=== PATIENT | male | born 1965 | race Two or more races ===

== ENCOUNTER → 2021-02-01 12:48 | Outpatient (REF) | payer OTHER, SELFPAY ==
--- NOTE | 2021-02-01 12:52 | CA_ITS ---
Transthoracic Echocardiogram Patient (Last, First, Middle): Guy Granado, Gender: Male Date of : 1965 Age: 55 Procedure Date: 02/01/2021 Procedure Type: Transthoracic Echocardiogram Location: OP Height: 167.64 cm Weight: 110.22 kg BSA: 2.17 m2 Heart Rate: bpm BP: 134 / 80 mmHg Surgical Sales Representative: Referring MD: Chris Mcginnis MD Symptoms: Z98.890 - Other specified postprocedural states, MVR Study Quality: Good ECG Rhythm: Sinus Conclusions: - Normal left ventricular size and systolic function. - There is mildly increased left ventricular wall thickness. - Normal right ventricular cavity size and systolic function. - The left atrium is moderately dilated. - There is mild dilatation of the sinuses of Valsalva and mild dilatation of the ascending aorta. Findings Procedure Information Contrast agent, definity, is being given per protocol without apparent complications. Left Ventricle Normal left ventricular size and systolic function. There is mildly increased left ventricular wall thickness. The visually estimated ejection fraction is between 55-60%. There is no evidence of regional wall motion abnormalities. Diastolic function is indeterminate on the basis of available data. Right Ventricle Normal right ventricular cavity size and systolic function. Atria The left atrium is moderately dilated. Aortic Valve The aortic valve structure and function is likely normal. There is no aortic valve stenosis. There is no aortic valve regurgitation. Mitral Valve There is no mitral valve regurgitation. There is no mitral valve stenosis. s/p mitral valve repair. Pulmonic Valve The pulmonic valve is likely normal. Tricuspid Valve Normal tricuspid valve structure. There is trace tricuspid valve regurgitation. Normal right atrial pressure. There is no evidence of pulmonary hypertension. Great Vessels The pulmonary artery was not well visualized. There is mild dilatation of the sinuses of Valsalva and mild dilatation of the ascending aorta. Venous The inferior vena cava is normal in size and collapses greater than 50% with inspiration. Pericardium/Pleural There is no evidence of pericardial effusion. Prior Study Comparison Changes noted compared to prior study dated: 09/01/2018. LA moderately dilated. Mild dilation of ascending aorta. Measurements 2D Linear Measurements IVSd: 1.27 0.6-0.9/0.6-1.0 cm LVIDd: 4.69 3.9-5.3/4.2-5.9 cm LVIDd Index: 2.16 2.4-3.2/2.2-3.1 cm/m2 LVIDs: 2.95 2.0-3.6 cm LVPWd: 1.22 0.7-1.1 cm Ao Root: 4.50 2.1-3.5 cm LA Diam: 4.90 2.7-3.8/3.0-4.0 cm LAIDs Index: 2.26 1.5-2.3 cm/m2 LV Mass: 277.66 67-162/88-224 g LV Mass Index: 127.96 43-95/49-115 g/m2 LVOT Diam: 2.50 3.0+(-)1.3 cm Mitral Valve MV VTI: 0.63 MV Pk Ramin: 1.45 MV Mn Ramin: 0.83 MV Pk Grad: 8.00 MV Mn Grad: 4.00 MV Pk E: 1.13 MV PK A: 1.26 MV Decel Time: 335.00 E/A: 0.90 E'Lateral: 5.98 E'Medial: 5.55 E/E' Med: 20.40 E/E' Lat: 18.90 PHT: 98.00 MVA PHT: 2.24 MVA Continuity: 1.67 Decel [place]: 3.38 Aortic Valve AoV Pk Ramin: 1.25 AoV Mn Ramin: 0.72 AoV VTI: 0.30 AoV Pk Grad: 6.00 Aov Mn Grad: 3.00 LEILA Cont.VTI: 3.57 LVOT LVOT Pk Ramin: 0.91 LVOT Mn Ramin: 0.54 LVOT VTI: 0.22 LVOT Pk Grad: 3.00 LVOT Mn Grad: 1.00 LVOT Diam: 2.50 LVOT Area: 4.91 Diastolic Function MV Pk E: 1.13 MV Pk A: 1.26 E/A: 0.90 E'Medial: 5.55 E/E' Med: 20.40 E' Laterial: 5.98 E/E' Lat: 18.90 Right Ventricle TAPSE (mm): 19.00 TVS' Ramin: 9.00 Tricuspid Valve TR Pk Ramin: 2.25 TR Pk Grad: 20.00 RA Press: 3.00 RVSP: 23.00 Great Vessels Aorta Ao Root-2D: 4.50 2.0-3.7 cm Sinus of Valsalva: 4.50 2.0-3.5 cm Ao Asc: 3.60 2.1-3.4 cm Pulmonary Valve PV Pk Ramin: 0.80 Peak PV Grad: 3.00 Updated in Other Vendor System with Status of Final Orion Del Angel MD electronically signed on 02/03/2021 4:27:26 PM with status of Final
== END ==
LOC: HO.CARD 12:48
PROVIDERS: Visit Provider Internal Medicine Cardiovascular Disease
DX: Z98.890 Other specified postprocedural states (principal)
CPT/HCPCS: 93306

== ENCOUNTER → 2021-07-08 12:42 | Outpatient (BNVA) | payer OTHER, SELFPAY | PROVIDERS: PCP General Practice; Referring Provider General Practice; Visit Provider Internal Medicine Cardiovascular Disease | DX: I10 Essential (primary) hypertension (principal); Z98.890 Other specified postprocedural states | CPT/HCPCS: 93005; 99212 ==

== ENCOUNTER → 2022-06-06 13:06 | Outpatient (REF) | payer OTHER, SELFPAY ==
--- NOTE | 2022-06-06 14:46 | CA_ITS ---
Transthoracic Echocardiogram Patient (Last, First, Middle): Guy Granado, Gender: Male Date of : 1965 Age: 57 Procedure Date: 06/06/2022 Procedure Type: Transthoracic Echocardiogram Location: OP Height: 167.64 cm Weight: 112.49 kg BSA: 2.19 m2 Heart Rate: 67 bpm BP: 135 / 80 mmHg Cnc Wood Lathe Operator: GENO Referring MD: Chris Mcginnis MD Asphalt Patcher: Chris Mcginnis MD Symptoms: Z98.890 - Other specified postprocedural states Study Quality: Poor/Contrast ECG Rhythm: Sinus Conclusions: - 1. Technically limited study despite use of contrast agent 2. Normal LV systolic function with pseudonormal filling pattern 3. Limited visualization of cardiac valve including of the reported prior mitral valve repair with normal cardiac valvular Doppler 4. Normal calculated RV systolic pressure Findings Procedure Information Contrast agent, definity, is being given per protocol without apparent complications. Left Ventricle The left ventricle was not well visualized. Normal left ventricular cavity size. The visually estimated ejection fraction is between 65-70%. Regional wall motion abnormalities can not be excluded due to suboptimal endocardial definition. Spectral Doppler is indicative of a pseudonormal filling pattern. Right Ventricle The right ventricle was not well visualized. Atria The left atrium was not well visualized. Interatrial shunt cannot be excluded. The right atrium was not well visualized. Aortic Valve The aortic valve was not well visualized. There is no aortic valve stenosis. There is no aortic valve regurgitation. Mitral Valve The mitral valve was not well visualized. There is no mitral valve regurgitation. Pulmonic Valve The pulmonic valve was not well visualized. Tricuspid Valve The tricuspid valve was not well visualized. There is trace tricuspid valve regurgitation. The right ventricular systolic pressure is 17 mmHg. Great Vessels The aorta was not well visualized. The pulmonary artery was not well visualized. Venous The inferior vena cava is normal in size and collapses greater than 50% with inspiration. Pericardium/Pleural The pericardium was not well visualized. Prior Study Comparison No significant change compared to prior study dated: 02/01/2021. Measurements 2D Linear Measurements IVSd: 1.59 0.6-0.9/0.6-1.0 cm LVIDd: 4.65 3.9-5.3/4.2-5.9 cm LVIDd Index: 2.12 2.4-3.2/2.2-3.1 cm/m2 LVIDs: 3.22 2.0-3.6 cm LVPWd: 1.62 0.7-1.1 cm LA Diam: 6.00 2.7-3.8/3.0-4.0 cm LAIDs Index: 2.74 1.5-2.3 cm/m2 LV Mass: 400.44 67-162/88-224 g LV Mass Index: 182.85 43-95/49-115 g/m2 LVOT Diam: 2.40 3.0+(-)1.3 cm 2D Systolic Function EF 4C: 68.40 >55% EF 2C: 74.70 >55% EF BiP: 71.40 >55% Mitral Valve MV VTI: 0.53 MV Pk Ramin: 1.59 MV Mn Ramin: 1.04 MV Pk Grad: 10.00 MV Mn Grad: 5.00 MV Pk E: 1.52 MV PK A: 1.31 MV Decel Time: 312.00 E/A: 1.20 E'Lateral: 4.23 E'Medial: 4.60 E/E' Med: 33.00 E/E' Lat: 35.90 PHT: 91.00 MVA PHT: 2.42 MVA Continuity: 2.36 Decel [place]: 4.87 Aortic Valve AoV Pk Ramin: 1.56 AoV Mn Ramin: 1.07 AoV VTI: 0.33 AoV Pk Grad: 10.00 Aov Mn Grad: 5.00 LEILA Cont.VTI: 3.82 LVOT LVOT Pk Ramin: 1.37 LVOT Mn Ramin: 0.89 LVOT VTI: 0.28 LVOT Pk Grad: 8.00 LVOT Mn Grad: 4.00 LVOT Diam: 2.40 LVOT Area: 4.52 Diastolic Function MV Pk E: 1.52 MV Pk A: 1.31 E/A: 1.20 E'Medial: 4.60 E/E' Med: 33.00 E' Laterial: 4.23 E/E' Lat: 35.90 Right Ventricle TAPSE (mm): 19.70 TVS' Ramin: 9.58 Tricuspid Valve TR Pk Ramin: 1.86 TR Pk Grad: 14.00 RA Press: 3.00 RVSP: 17.00 Great Vessels Aorta Sinus of Valsalva: 3.90 2.0-3.5 cm Ao Asc: 3.70 2.1-3.4 cm Pulmonary Valve PV Pk Ramin: 0.69 Peak PV Grad: 2.00 Updated in Other Vendor System with Status of Final Chris Mcginnis MD electronically signed on 06/06/2022 7:02:45 PM with status of Final
== END ==
LOC: HO.CARD 13:06
PROVIDERS: PCP Internal Medicine; Visit Provider Internal Medicine Cardiovascular Disease
DX: Z98.890 Other specified postprocedural states (principal)
CPT/HCPCS: 93306; Q9957

== ENCOUNTER → 2022-07-10 13:03 | Outpatient (BNVA) | payer OTHER, SELFPAY | PROVIDERS: PCP General Practice; Referring Provider General Practice; Visit Provider Internal Medicine Cardiovascular Disease | DX: I10 Essential (primary) hypertension (principal); Z98.890 Other specified postprocedural states | CPT/HCPCS: 93005; 99212 ==

== ENCOUNTER 2022-09-14 13:17 | Emergency (ER) | payer OTHER, SELFPAY ==
--- NOTE | ~2022-09-14 | XR_ITS ---
EXAMINATION: XR CHEST CLINICAL INFORMATION: Cough and chest pain. COMPARISON: 05/03/2019 chest radiographs. TECHNIQUE: Frontal view of the chest was obtained. FINDINGS: No significant abnormality is noted involving the heart, lungs, mediastinum, bony thorax or soft tissues. Multiple levels sternotomy wires are intact. XR/XR chest 1V IMPRESSION: No acute cardiopulmonary process.
--- NOTE | 2022-09-14 13:26 | ECG_ITS ---
Test Reason : CHEST PAIN Blood Pressure : / mmHG Vent. Rate : 074 BPM Atrial Rate : 074 BPM P-R Int : 166 ms QRS Dur : 080 ms QT Int : 394 ms P-R-T Axes : 043 007 058 degrees QTc Int : 437 ms Normal sinus rhythm Inferior infarct (cited on or before 07-DEC-2016) Abnormal ECG When compared with ECG of 29-JAN-2018 23:03, No significant change was found Referred By: Alba Marcos Electronically Signed By:Orion Del Angel
[2022-09-14 13:32] VITALS: BP 143/78; PULSE 70; RESP 16; TEMP 36.7; O2SAT 96; BMI 40.3
[2022-09-14 13:36] VITALS: BP 143/78; PULSE 71; RESP 18; TEMP 36.7; O2SAT 97; BMI 40.9
--- NOTE | 2022-09-14 13:37 | ED_ITS ---
HPI - General Adult General Chief complaint: Dyspnea Stated complaint: cant sleep x3 days. chest tightness Time Seen by Provider: 09/14/22 13:25 Source: patient and bump grader operator Mode of arrival: ambulatory Limitations: no limitations History of Present Illness HPI narrative: 57-year-old male speaking came in for evaluation of 4 days of coughing, congestion, runny nose, chills with no fever, patient also been having chest pain for the past 2 days with the coughing, pain is not exertional localized to the left side of the chest with no radiation. Patient stated that his time because he can sleep a night from coughing too much. No sick contacts, no recent travel. Related Data Home Medications Medication Instructions Recorded Confirmed zolpidem 10 mg tablet 10 mg PO BEDTIME PRN 07/08/21 07/10/22 Previous Rx's Medication Instructions Recorded aspirin 81 mg tablet,delayed 81 mg PO DAILY #90 tabs 12/12/21 release lisinopril 10 mg tablet 10 mg PO DAILY #90 tabs 06/09/22 metoprolol succinate 100 mg 100 mg PO DAILY #90 tabs 06/26/22 tablet,extended release 24 hr simvastatin 20 mg tablet 20 mg PO BEDTIME 90 days #90 tabs 07/07/22 amoxicillin 500 mg tablet 2,000 mg PO ONCE PRN dental 07/10/22 procedures #4 tabs albuterol sulfate 90 mcg/actuation 1 inh inhalation QID PRN shortness 09/14/22 aerosol inhaler of breath or wheezing #6.7 grams azithromycin 250 mg tablet See Rx Instructions PO .COMPLEX #6 09/14/22 (Zithromax Z-Larry) tabs prednisone 20 mg tablet 20 mg PO BID #10 tabs 09/14/22 Allergies Allergy/AdvReac Type Severity Reaction Status Date / Time morphine [MORPHINE] Allergy Unknown HEADACHE Unverified 03/15/20 17:23 Review of Systems Review of Systems: All other systems are reviewed and are negative Constitutional: Reports as per HPI and Reports no additional constitutional complaints Eyes: Reports as per HPI and Reports no additional eye complaints Reports system reviewed and no additional complaints, except as documented Cardiovascular: Reports as per HPI and Reports no additional cardiovascular complaints Respiratory: Reports as per HPI and Reports no additional respiratory complaints Gastrointestinal: Reports as per HPI and Reports no additional gastrointestinal complaints Genitourinary: Reports no additional female genitourinary complaints Musculoskeletal: Reports no additional musculoskeletal complaints Skin/Breast: Reports system reviewed and no additional complaints, except as docu Psychiatric: Reports no additional psychiatric complaints Endocrine: Reports no additional endocrine complaints Hematologic/Lymphatic: Reports no additional hematologic/lymphatic complaints Allergic/Immunologic: Reports no additional allergic/immunologic complaints Reports system reviewed and no additional complaints, except as documented and Reports Abnormal speech present [facility] Past Medical History Medical History HTN (hypertension) Mitral regurgitation Surgical History Status post mitral valve repair Social History Social History Advance Directives: No Advance Directives Information Provided: Yes Physical Exam ED Vital Signs: Vital Signs - 24 hr 09/14/22 13:32 09/14/22 13:36 Temperature 98.1 F 98.1 F Pulse Rate 70 71 Respiratory Rate 16 18 Blood Pressure 143/78 H 143/78 H Pulse Oximetry 96 97 Oxygen Delivery Method Room Air Room Air BMI result Body Mass Index 40.9 Vital signs have been reviewed as appeared to be correct. Blood pressure normal. Heart rate normal. Respiration rate normal. Temperature normal. Oxy gen saturation normal. Appearance: Alert. Oriented X3. No acute distress. Head: Normal external exam. Normocephalic. Atraumatic. No Sanders signs noted. No raccoon eyes noted Eyes: PERRLA. EOMI. Conjunctiva and sclera normal. Eyelids normal. ENT: TM's Normal. Pharynx normal. Uvula midline. Moist mucous membranes. No trismus noted. No drooling noted. No muffled voice noted. Neck: Normal inspection. Neck supple. FROM. No adenopathy. Thyroid Normal. No meningeal signs. No neck mass noted. CVS: Normal heart rate and rhythm. Heart sound normal. No murmurs noted. Pulses normal throughout. Respiratory: No respiratory distress. Painless inspiration. Breath sounds no rmal. No wheezes/rales/rhonchi noted. Chest nontender. No accessory muscle usage noted or decreased air movement noted. Abdomen: Soft and nontender. Bowel sounds normal in all 4 quadrants. No disten tion noted. No organomegaly noted. No visible injury noted. Back: No CVA tenderness. Full range of motion noted. Skin: Skin warm and dry. Normal skin color. Normal skin turgor. No rashes/lesions/lacerations noted. Extremities: No lower extremity edema. Extremities exhibit normal range of mo tion. Extremities nontender. Neuro: Oriented X 3. Cranial nerve exam: II-XII are grossly intact No motor deficit. No sensory deficit. Reflexes normal. Medications Administered Discontinued Medications Generic Name Dose Route Start Last Admin Trade Name Freq PRN Reason Stop Dose Admin Acetaminophen 650 mg 09/14/22 14:11 09/14/22 14:25 Acetaminophen 325 Mg Tablet PO 09/14/22 14:12 650 mg ONCE ONE Administration Ondansetron HCl 4 mg 09/14/22 14:11 09/14/22 14:25 Ondansetron Odt 4 Mg Tab.Rapdis TRANSLINGU 09/14/22 14:12 4 mg ONCE ONE Administration Medical Decision Making Differential Diagnosis Differential Diagnoses: The differential diagnosis associated with the presentation includes (Upper respiratory viral infection, pneumonia, ACS.) Lab Data MDM Lab Attestation statement: I reviewed the patient's lab results. 09/14/22 13:50 09/14/22 13:50 Labs: Lab Results 09/14/22 09/14/22 09/14/22 Range/Units 13:41 13:50 13:50 WBC 5.7 (4.8-10.8) X10*3/uL RBC 4.80 (4.60-5.80) X10*6/uL Hgb 14.0 (14.0-18.0) g/dl Hct 42.3 (42.0-52.0) % MCV 88.1 (80.0-98.0) fL MCH 29.2 (27.0-33.0) pg MCHC 33.1 (31.0-36.0) g/dl RDW 13.8 (11.0-16.0) % Plt Count 155 L (160-400) X10*3/uL MPV 10.6 (9.4-12.4) fL Immature Gran % (Auto) 0.4 (0.0-0.4) % Neut % (Auto) 56.7 (45-73) % Lymph % (Auto) 28.9 (20-40) % [place] % (Auto) 11.3 H (2-11) % Eos % (Auto) 2.5 (0-4) % Baso % (Auto) 0.2 (0-2) % Lymph # (Auto) 1.6 (1.2-4.9) X10*3/uL [place] # (Auto) 0.6 (0.1-1.2) X10*3/uL Eos # (Auto) 0.1 (0.0-0.4) X10*3/uL Baso # (Auto) 0.0 (0.0-0.2) X10*3/uL Abs Immat Gran (auto) 0.02 (0.00-0.03) X10*3/uL Absolute Neuts (auto) 3.2 (2.0-8.3) x10*3/uL Absolute Nucleated RBC 0.000 (0.0-0.012) X10*3/uL Nucleated RBC % (auto) 0.0 (0.0-0.2) /100WBC Sodium 140 (135-145) mmol/L Potassium 4.3 (3.3-5.1) mmol/L Chloride 107 (96-108) mmol/L Carbon Dioxide 25 (22-29) mmol/L Anion Gap 12 (12-20) BUN 14 (9-16) mg/dL Creatinine 0.90 (0.5-1.4) mg/dL Estim Creat Clear Calc 110.5 Estimated GFR > 60 Random Glucose 106 (60-115) mg/dL Calcium 8.9 (8.4-10.2) mg/dL Total Bilirubin 0.4 (0.0-1.0) mg/dL Direct Bilirubin < 0.2 (0.0-0.5) mg/dL AST 51 H (5-37) U/L ALT 53 H (0-40) U/L Alkaline Phosphatase 103 (39-117) U/L Troponin I High Sens (<3.5-35.0) ng/L B-Natriuretic Peptide (<100) pg/mL Total Protein 6.5 (6.5-8.0) g/dL Albumin 3.8 (3.5-5.0) g/dL Lipase 10 (8-78) U/L Urine Color Urine Appearance Urine pH (5.0-9.0) Ur Specific [place] (1.005-1.025) Urine Protein (Neg-Trace) mg/dL Urine Glucose (UA) (Negative) mg/dL Urine Ketones (Negative) mg/dL Urine Blood (Negative) Urine Nitrite (Negative) Ur Leukocyte Esterase (Negative) Urine RBC (0-2) /HPF Urine WBC (0-5) /HPF Ur Squamous Epith Cells (0-2) /HPF Urine Bacteria (None Seen) Hyaline Casts (0-2) /LPF Influenza Type A (PCR) NEGATIVE (Negative) Influenza Type B (PCR) NEGATIVE (Negative) RSV RNA Qual (PCR) NEGATIVE (Negative) SARS-CoV-2 RNA (RT-PCR) NEGATIVE (Negative) 09/14/22 09/14/22 09/14/22 Range/Units 13:50 13:50 14:11 WBC (4.8-10.8) X10*3/uL RBC (4.60-5.80) X10*6/uL Hgb (14.0-18.0) g/dl Hct (42.0-52.0) % MCV (80.0-98.0) fL MCH (27.0-33.0) pg MCHC (31.0-36.0) g/dl RDW (11.0-16.0) % Plt Count (160-400) X10*3/uL MPV (9.4-12.4) fL Immature Gran % (Auto) (0.0-0.4) % Neut % (Auto) (45-73) % Lymph % (Auto) (20-40) % [place] % (Auto) (2-11) % Eos % (Auto) (0-4) % Baso % (Auto) (0-2) % Lymph # (Auto) (1.2-4.9) X10*3/uL [place] # (Auto) (0.1-1.2) X10*3/uL Eos # (Auto) (0.0-0.4) X10*3/uL Baso # (Auto) (0.0-0.2) X10*3/uL Abs Immat Gran (auto) (0.00-0.03) X10*3/uL Absolute Neuts (auto) (2.0-8.3) x10*3/uL Absolute Nucleated RBC (0.0-0.012) X10*3/uL Nucleated RBC % (auto) (0.0-0.2) /100WBC Sodium (135-145) mmol/L Potassium (3.3-5.1) mmol/L Chloride (96-108) mmol/L Carbon Dioxide (22-29) mmol/L Anion Gap (12-20) BUN (9-16) mg/dL Creatinine (0.5-1.4) mg/dL Estim Creat Clear Calc Estimated GFR Random Glucose (60-115) mg/dL Calcium (8.4-10.2) mg/dL Total Bilirubin (0.0-1.0) mg/dL Direct Bilirubin (0.0-0.5) mg/dL AST (5-37) U/L ALT (0-40) U/L Alkaline Phosphatase (39-117) U/L Troponin I High Sens 5.8 (<3.5-35.0) ng/L B-Natriuretic Peptide 17 (<100) pg/mL Total Protein (6.5-8.0) g/dL Albumin (3.5-5.0) g/dL Lipase (8-78) U/L Urine Color Yellow Urine Appearance Clear Urine pH 5.5 (5.0-9.0) Ur Specific [place] 1.025 (1.005-1.025) Urine Protein Trace (Neg-Trace) mg/dL Urine Glucose (UA) Negative (Negative) mg/dL Urine Ketones Trace (Negative) mg/dL Urine Blood Small (1+) H (Negative) Urine Nitrite Negative (Negative) Ur Leukocyte Esterase Negative (Negative) Urine RBC 6-10 H (0-2) /HPF Urine WBC 0-5 (0-5) /HPF Ur Squamous Epith Cells 0-2 (0-2) /HPF Urine Bacteria None Seen (None Seen) Hyaline Casts 0-2 (0-2) /LPF Influenza Type A (PCR) (Negative) Influenza Type B (PCR) (Negative) RSV RNA Qual (PCR) (Negative) SARS-CoV-2 RNA (RT-PCR) (Negative) Independent Interpretation I performed an independent interpretation of an: EKG (Normal sinus rhythm at 74 beats per minutes with normal intervals, no ST-T changes.) and Plain X-Ray (No acute intrathoracic pathology) Radiology Impression Discussion of test interpretation with radiology: I have reviewed the radiologist's reading. Discharge Plan Discharge Clinical Impression: Upper respiratory infection, Acute bronchitis Clinical Impression: (Ruled Out): Otitis media Patient Disposition: Home, Self-Care Instructions: Acute Bronchitis (ED) Prescriptions: New azithromycin [Zithromax Z-Larry] 250 mg tablet See Rx Instructions .ROUTE .COMPLEX Qty: 6 0RF Rx Instructions: For 250 mg dose pack: take 500 mg today (day 1), then 250 mg for 4 days (days 2-5) prednisone 20 mg tablet 20 mg PO BID Qty: 10 0RF albuterol sulfate 90 mcg/actuation HFA aerosol inhaler 1 inh inhalation QID PRN (Reason: shortness of breath or wheezing) Qty: 6.7 0RF No Action aspirin 81 mg tablet,delayed release (DR/EC) 81 mg PO DAILY Qty: 90 3RF lisinopril 10 mg tablet 10 mg PO DAILY Qty: 90 3RF metoprolol succinate 100 mg tablet extended release 24 hr 100 mg PO DAILY Qty: 90 3RF simvastatin 20 mg tablet 20 mg PO BEDTIME 90 Days Qty: 90 3RF zolpidem 10 mg tablet 10 mg PO BEDTIME PRN amoxicillin 500 mg tablet 2,000 mg PO ONCE PRN (Reason: dental procedures) Qty: 4 3RF Referrals: Morelia Rutherford MD [Primary Care Provider] -
[2022-09-14 13:54] LABS: MANUAL DIFF FLAG NO
[2022-09-14 13:55] LABS: Basophils Percent Auto 0.2 % (0-2); Eosinophils Absolute Auto 0.1 X10*3/uL (0.0-0.4); Eosinophils Percent Auto 2.5 % (0-4); Hematocrit 42.3 % (42.0-52.0); Imm Gran Abs Auto 0.02 X10*3/uL (0.00-0.03); Imm Gran Pct Auto 0.4 % (0.0-0.4); Lymphocytes Absolute Auto 1.6 X10*3/uL (1.2-4.9); Lymphocytes Percent Auto 28.9 % (20-40); Mean Corpuscular HGB Conc 33.1 g/dl (31.0-36.0); Mean Corpuscular Hemoglobin 29.2 pg (27.0-33.0); Mean Corpuscular Volume 88.1 fL (80.0-98.0); Mean Platelet Volume 10.6 fL (9.4-12.4); Monocytes Absolute Auto 0.6 X10*3/uL (0.1-1.2); Monocytes Percent Auto 11.3 % (2-11); Neutrophils Absolute Auto 3.2 x10*3/uL (2.0-8.3); Neutrophils Percent Auto 56.7 % (45-73); Platelet Count 155 X10*3/uL (160-400); Red Cell Distribution Width 13.8 % (11.0-16.0); White Blood Count 5.7 X10*3/uL (4.8-10.8)
[2022-09-14 14:11] LABS: Alanine Aminotransferase 53 U/L (0-40); Albumin Level 3.8 g/dL (3.5-5.0); Alkaline Phosphatase 103 U/L (39-117); Anion Gap 12 (12-20); Aspartate Amino Transferase 51 U/L (5-37); Bilirubin Total 0.4 mg/dL (0.0-1.0); Blood Urea Nitrogen 14 mg/dL (9-16); Calcium 8.9 mg/dL (8.4-10.2); Carbon Dioxide 25 mmol/L (22-29); Chloride 107 mmol/L (96-108); Creatinine Clr Calc Pharmacy 110.5; Estimated Glomerular Filt Rate > 60; Glucose Random 106 mg/dL (60-115); Lipase 10 U/L (8-78); Potassium 4.3 mmol/L (3.3-5.1); Sodium 140 mmol/L (135-145); Total Protein 6.5 g/dL (6.5-8.0)
[2022-09-14 14:14] LABS: Bilirubin Direct < 0.2 mg/dL (0.0-0.5)
[2022-09-14 14:15] LABS: B Type Natriuretic Peptide 17 pg/mL (<100)
[2022-09-14 14:17] LABS: Troponin-I High Sensitivity 5.8 ng/L (<3.5-35.0)
[2022-09-14 14:21] LABS: Appearance Urine Clear; Color Urine Yellow; Glucose Urine UA Negative (Negative); Leukocyte Esterase Urine Negative (Negative); Nitrite Urine Negative (Negative); PH 5.5 (5.0-9.0); Specific Gravity - Urine 1.025 (1.005-1.025); UMIC TRIGGER UACC YES; Urine Blood Small (1+) (Negative); Urine Ketones Trace mg/dL (Negative); Urine Protein Trace mg/dL (Neg-Trace)
[2022-09-14 14:23] LABS: Influenza A PCR NEGATIVE (Negative); Influenza B PCR NEGATIVE (Negative); Resp Syncy Virus RNA Qual PCR NEGATIVE (Negative); SARS COV2 PCR INHOUSE NEGATIVE (Negative)
[2022-09-14 14:24] LABS: Bacteria Urine None Seen (None Seen); Hyaline Casts Urine 0-2 /LPF (0-2); Squamous Epithelial Cell Urine 0-2 /HPF (0-2); WBC Urine 0-5 /HPF (0-5)
[2022-09-14] MEDS: Ondansetron ODT 4 MG TAB.RAPDIS TRANSLINGU (14:25)
[2022-09-14] MEDS: Acetaminophen 325 MG TABLET 650 MG PO (14:25)
== END 2022-09-14 15:57 | disposition home or self-care (01) ==
PROVIDERS: Emergency Provider Emergency Medicine; PCP General Practice
DX: R07.89 Other chest pain (principal); R05.9 Cough, unspecified; R06.02 Shortness of breath; Z20.822 Contact with and (suspected) exposure to COVID-19; Z20.828 Contact with and (suspected) exposure to other viral communicable diseases; Z79.899 Other long term (current) drug therapy
CPT/HCPCS: 0241U; 36415; 71045; 80048; 80076; 81001; 83690; 83880; 84484; 85025; 93005; 99284

== ENCOUNTER 2022-12-26 17:45 | Emergency (ER) | payer OTHER, SELFPAY ==
[2022-12-26 17:51] VITALS: BP 179/109; PULSE 68; RESP 20; TEMP 36.8; O2SAT 97; BMI 38.7
--- NOTE | 2022-12-26 17:51 | ED_ITS ---
HPI - General Adult General Chief complaint: Urogenital-Male Stated complaint: bleeding in groin area Time Seen by Provider: 12/26/22 19:37 Source: patient and faculty research physician Mode of arrival: ambulatory History of Present Illness HPI narrative: 57-year-old male arrives with complaints of blood in the urine, as well as small painful swelling at the left aspect of the penile shaft. Patient denies multiple sexual partners and states that he is in a monogamous relationship and only has sexual intercourse with his . He denies any history of herpes and denies any penile discharge. Related Data Home Medications Medication Instructions Recorded Confirmed zolpidem 10 mg tablet 10 mg PO BEDTIME PRN 07/08/21 07/10/22 Previous Rx's Medication Instructions Recorded aspirin 81 mg tablet,delayed 81 mg PO DAILY #90 tabs 12/12/21 release lisinopril 10 mg tablet 10 mg PO DAILY #90 tabs 06/09/22 metoprolol succinate 100 mg 100 mg PO DAILY #90 tabs 06/26/22 tablet,extended release 24 hr simvastatin 20 mg tablet 20 mg PO BEDTIME 90 days #90 tabs 07/07/22 amoxicillin 500 mg tablet 2,000 mg PO ONCE PRN dental 07/10/22 procedures #4 tabs albuterol sulfate 90 mcg/actuation 1 inh inhalation QID PRN shortness 09/14/22 aerosol inhaler of breath or wheezing #6.7 grams azithromycin 250 mg tablet See Rx Instructions PO .COMPLEX #6 09/14/22 (Zithromax Z-Larry) tabs prednisone 20 mg tablet 20 mg PO BID #10 tabs 09/14/22 Allergies Allergy/AdvReac Type Severity Reaction Status Date / Time morphine [MORPHINE] Allergy Unknown HEADACHE Unverified 03/15/20 17:23 Review of Systems Review of Systems: Pertinent positives and negatives as stated in HPI COUNT INCLUDES THE [facility] Past Medical History Source: nursing notes reviewed Medical History HTN (hypertension) Mitral regurgitation Surgical History Status post mitral valve repair Social History Social History Alcohol intake: never Smoked in Last 30 Days: No Use of substances other than those prescribed or required for medical reasons: No Advance Directives: No Advance Directives Information Provided: No Physical Exam ED Vital Signs: Vital Signs - 24 hr 12/26/22 17:51 12/26/22 18:58 12/26/22 20:00 Temperature 98.3 F 98.0 F Pulse Rate 68 67 64 Respiratory Rate 20 18 16 Blood Pressure 179/109 H 150/98 H 147/84 H Pulse Oximetry 97 96 98 Oxygen Delivery Method Room Air Room Air BMI result Body Mass Index 38.7 VITAL SIGNS: Reviewed. GENERAL: Well developed, well nourished, in no acute distress. HEAD: Normocephalic/atraumatic EYES: PERRLA, EOMI EARS: Ext canals without abnormality LUNGS: Normal breath sounds. No adventitious sounds or accessory muscle use. SpO2<98> CARDIOVASCULAR: Regular rate and rhythm without noted murmurs, no JVD or lower extremity edema. ABDOMEN: Soft, non-tender, non-distended with bowel sounds. : [[employer]}- uncircumcised male with no evidence of vesicular rash, there is a very small hematoma verses varicosity at the left penile shaft there are no other ulcerations/lesions that are concerning MUSCULOSKELETAL: No tenderness, deformities, or effusions noted on gross inspection. EXTREMITIES: No cyanosis, clubbing or edema. SKIN: Inspection of the skin reveals no rashes NEUROLOGIC: Alert and oriented x 4. Strength and sensation to light touch were grossly intact x 4. Course Course Course Narrative: This is an RME: Additional HPI, ROS, PE not included below will be deferred to primary provider. Patient is a 57 year old male with a past medical history of coronary artery disease status post mitral valve repair presenting with blood clots coming from his penis as well as bumps and lumps on his penis. Patient denies changes in urination, fevers, chills, chest pain, shortness of breath, and weakness. Patient denies history of kidney stones. Plan: labs Medical Decision Making Medical Decision Making MDM Narrative: 57-year-old male with reported hematuria as well as penile pain, DDX: Renal colic, prostatic hematuria, STI I reviewed all investigations and after my clinical exam the hematologic results are grossly within normal limits, patient appears to have chronic thrombocytopenia with a mild drop from August of 2022. Chemistries are grossly stable and a urinalysis is negative for presence of RBCs. Overall I feel that the small area on patient's penile shaft is potentially associated with a small rupture of the vessel it is not significant, does not appear to be occlusive in any way and patient was discharged with recommendations for analgesics and to avoid sexual intercourse for the next 3-5 days. He is otherwise discharged home. Differential Diagnosis Please see the discussion above Lab Data Please see the discussion above 12/26/22 18:20 12/26/22 18:20 Labs: Lab Results 12/26/22 12/26/22 12/26/22 Range/Units 18:20 18:20 20:52 WBC 5.6 (4.8-10.8) X10*3/uL RBC 4.56 L (4.60-5.80) X10*6/uL Hgb 13.6 L (14.0-18.0) g/dl Hct 40.4 L (42.0-52.0) % MCV 88.6 (80.0-98.0) fL MCH 29.8 (27.0-33.0) pg MCHC 33.7 (31.0-36.0) g/dl RDW 13.3 (11.0-16.0) % Plt Count 99 L D (160-400) X10*3/uL MPV 11.7 (9.4-12.4) fL Immature Gran % (Auto) 0.4 (0.0-0.4) % Neut % (Auto) 56.9 (45-73) % Lymph % (Auto) 34.5 (20-40) % [place] % (Auto) 6.6 (2-11) % Eos % (Auto) 1.4 (0-4) % Baso % (Auto) 0.2 (0-2) % Lymph # (Auto) 1.9 (1.2-4.9) X10*3/uL [place] # (Auto) 0.4 (0.1-1.2) X10*3/uL Eos # (Auto) 0.1 (0.0-0.4) X10*3/uL Baso # (Auto) 0.0 (0.0-0.2) X10*3/uL Abs Immat Gran (auto) 0.02 (0.00-0.03) X10*3/uL Absolute Neuts (auto) 3.2 (2.0-8.3) x10*3/uL Absolute Nucleated RBC 0.000 (0.0-0.012) X10*3/uL Nucleated RBC % (auto) 0.0 (0.0-0.2) /100WBC Sodium 138 (135-145) mmol/L Potassium 3.9 (3.3-5.1) mmol/L Chloride 109 H (96-108) mmol/L Carbon Dioxide 18 L (22-29) mmol/L Anion Gap 15 (12-20) BUN 10 (9-16) mg/dL Creatinine 0.84 (0.5-1.4) mg/dL Estim Creat Clear Calc 114.9 Estimated GFR > 60 Random Glucose 98 (60-115) mg/dL Calcium 9.4 (8.4-10.2) mg/dL Magnesium 2.0 (1.6-2.6) mg/dL Total Bilirubin 0.4 (0.0-1.0) mg/dL AST 27 (5-37) U/L ALT 35 (0-40) U/L Alkaline Phosphatase 82 (39-117) U/L Total Protein 7.2 (6.5-8.0) g/dL Albumin 3.8 (3.5-5.0) g/dL Urine Color Yellow Urine Appearance Clear Urine pH 6.5 (5.0-9.0) Ur Specific [place] <= 1.005 (1.005-1.025) Urine Protein Negative (Neg-Trace) mg/dL Urine Glucose (UA) Negative (Negative) mg/dL Urine Ketones Negative (Negative) mg/dL Urine Blood Trace H (Negative) Urine Nitrite Negative (Negative) Ur Leukocyte Esterase Negative (Negative) Urine RBC 0-2 (0-2) /HPF Urine WBC 0-5 (0-5) /HPF Ur Squamous Epith Cells 0-2 (0-2) /HPF Urine Bacteria None Seen (None Seen) Hyaline Casts 0-2 (0-2) /LPF External Record Review External record reviewed: Outpatient record and Prior outpatient labs Chronic Conditions Patient?s care impacted by: Hypertension Discharge Plan Discharge Clinical Impression: Penile pain Patient Disposition: Home, Self-Care Instructions: Hematoma (ED) Additional Instructions: 1. You have a very small hematoma, I recommend that you avoid sexual intercourse for the next 3-5 days to allow time for your body to resolve this. 2. Please follow-up with your primary care provider on Thursday morning to Return to the ER for any worsening symptoms. Prescriptions: No Action aspirin 81 mg tablet,delayed release (DR/EC) 81 mg PO DAILY Qty: 90 3RF lisinopril 10 mg tablet 10 mg PO DAILY Qty: 90 3RF metoprolol succinate 100 mg tablet extended release 24 hr 100 mg PO DAILY Qty: 90 3RF simvastatin 20 mg tablet 20 mg PO BEDTIME 90 Days Qty: 90 3RF azithromycin [Zithromax Z-Larry] 250 mg tablet See Rx Instructions .ROUTE .COMPLEX Qty: 6 0RF Rx Instructions: For 250 mg dose pack: take 500 mg today (day 1), then 250 mg for 4 days (days 2-5) prednisone 20 mg tablet 20 mg PO BID Qty: 10 0RF albuterol sulfate 90 mcg/actuation HFA aerosol inhaler 1 inh inhalation QID PRN (Reason: shortness of breath or wheezing) Qty: 6.7 0RF zolpidem 10 mg tablet 10 mg PO BEDTIME PRN amoxicillin 500 mg tablet 2,000 mg PO ONCE PRN (Reason: dental procedures) Qty: 4 3RF Referrals: Morelia Rutherford MD [Primary Care Provider] - Interventions: ED Discharge Assessment Last Done: 12/26/22 21:37 Discharge Date/Time: 12/26/22 21:38
[2022-12-26 18:24] LABS: MANUAL DIFF FLAG NO
[2022-12-26 18:45] LABS: Alanine Aminotransferase 35 U/L (0-40); Albumin Level 3.8 g/dL (3.5-5.0); Alkaline Phosphatase 82 U/L (39-117); Anion Gap 15 (12-20); Aspartate Amino Transferase 27 U/L (5-37); Bilirubin Total 0.4 mg/dL (0.0-1.0); Blood Urea Nitrogen 10 mg/dL (9-16); Calcium 9.4 mg/dL (8.4-10.2); Carbon Dioxide 18 mmol/L (22-29); Chloride 109 mmol/L (96-108); Creatinine Clr Calc Pharmacy 114.9; Estimated Glomerular Filt Rate > 60; Glucose Random 98 mg/dL (60-115); Potassium 3.9 mmol/L (3.3-5.1); Sodium 138 mmol/L (135-145); Total Protein 7.2 g/dL (6.5-8.0)
[2022-12-26 18:47] LABS: Basophils Percent Auto 0.2 % (0-2); Eosinophils Absolute Auto 0.1 X10*3/uL (0.0-0.4); Eosinophils Percent Auto 1.4 % (0-4); Hematocrit 40.4 % (42.0-52.0); Hemoglobin 13.6 g/dl (14.0-18.0); Imm Gran Abs Auto 0.02 X10*3/uL (0.00-0.03); Imm Gran Pct Auto 0.4 % (0.0-0.4); Lymphocytes Absolute Auto 1.9 X10*3/uL (1.2-4.9); Lymphocytes Percent Auto 34.5 % (20-40); Mean Corpuscular HGB Conc 33.7 g/dl (31.0-36.0); Mean Corpuscular Hemoglobin 29.8 pg (27.0-33.0); Mean Corpuscular Volume 88.6 fL (80.0-98.0); Mean Platelet Volume 11.7 fL (9.4-12.4); Monocytes Absolute Auto 0.4 X10*3/uL (0.1-1.2); Monocytes Percent Auto 6.6 % (2-11); Neutrophils Absolute Auto 3.2 x10*3/uL (2.0-8.3); Neutrophils Percent Auto 56.9 % (45-73); PLT CLUMP 1; Red Blood Count 4.56 X10*6/uL (4.60-5.80); Red Cell Distribution Width 13.3 % (11.0-16.0); SCAN SMEAR FLAG 1
[2022-12-26 18:58] VITALS: BP 150/98; PULSE 67; RESP 18; O2SAT 96
[2022-12-26 19:00] LABS: Platelet Count 99 X10*3/uL (160-400); White Blood Count 5.6 X10*3/uL (4.8-10.8)
--- NOTE | 2022-12-26 19:21 | PC.NURSE ---
Assumed care of pt. pt lying on stretcher, c/o urogenital pain and small lumps on penis. Visual assessment as documented. VSS, WCTM
[2022-12-26 20:00] VITALS: BP 147/84; PULSE 64; RESP 16; TEMP 36.7; O2SAT 98
[2022-12-26 21:01] LABS: Appearance Urine Clear; Color Urine Yellow; Glucose Urine UA Negative (Negative); Leukocyte Esterase Urine Negative (Negative); Nitrite Urine Negative (Negative); PH 6.5 (5.0-9.0); Specific Gravity - Urine <= 1.005 (1.005-1.025); UMIC TRIGGER UACC YES; Urine Blood Trace (Negative); Urine Ketones Negative (Negative); Urine Protein Negative (Neg-Trace)
[2022-12-26 21:03] LABS: Bacteria Urine None Seen (None Seen); Hyaline Casts Urine 0-2 /LPF (0-2); RBC Urine 0-2 /HPF (0-2); Squamous Epithelial Cell Urine 0-2 /HPF (0-2); WBC Urine 0-5 /HPF (0-5)
== END 2022-12-26 21:38 | disposition home or self-care (01) ==
PROVIDERS: Physician Assistant; Emergency Provider Student in an Organized Health Care Education/Training Program; PCP General Practice
DX: N48.89 Other specified disorders of penis (principal); I10 Essential (primary) hypertension; Z95.2 Presence of prosthetic heart valve
CPT/HCPCS: 36415; 80053; 81001; 81003; 83735; 85025; 99283; 99284

== ENCOUNTER 2023-06-15 09:58 | Outpatient (AMB) | payer OTHER, SELFPAY ==
--- NOTE | 2023-06-15 10:07 | A.OFFVIS_ITS ---
Intake VS Expanded 06/15/23 10:08 06/16/23 11:04 Height 5 ft 6 in 5 ft 6 in Weight 249 lb 5.485 oz 249 lb BMI 40.2 40.2 Intake Visit Reasons: Obesity/CONFIRMED Allergies morphine [MORPHINE] Allergy (Unknown, Unverified 03/15/20 17:23) HEADACHE HPI Nutrition Presentation Details Pt presents for initial MNT for T2DM . [facility] Height 5 ft 6 in Weight 249 lb Resting Metabolic Rate 1905.55 Calculated Activity Level Sedentary Calories Needed to Maintain Weight 2286.66 Diagnosis Nutrition problem #1 food nutri know defi As related to (etiology) #1 diagnosis As evidenced by (sign/symptom) #1 knowledge deficit of diet Monitoring/Goals Nutrition problem monitoring level of knowledge/skill, glucose, fasting, total CHO intake and weight Nutrition goal/outcome list 3 CHO foods and wt loss 5lbs in 2 months Outcome progress verbalized understanding Learning/Education Stages of change preparation Educational materials provided Yes (Meal planning, healthy plate method) Most Recent Diabetes Results: Creatinine 0.84 mg/dL (0.5-1.4) 12/26/22 Blood Urea Nitrogen 10 mg/dL (9-16) 12/26/22 Sodium 138 mmol/L (135-145) 12/26/22 Potassium 3.9 mmol/L (3.3-5.1) 12/26/22 Chloride 109 mmol/L (96-108) H 12/26/22 Carbon Dioxide 18 mmol/L (22-29) L 12/26/22 Calcium 9.4 mg/dL (8.4-10.2) 12/26/22 AST 27 U/L (5-37) 12/26/22 ALT 35 U/L (0-40) 12/26/22 Total Protein 7.2 g/dL (6.5-8.0) 12/26/22 Albumin 3.8 g/dL (3.5-5.0) 12/26/22 [facility] Medical History HTN (hypertension) Mitral regurgitation Surgical History Status post mitral valve repair Social History Alcohol intake: never Assessment & Plan Assessment & Plan (1) T2DM (type 2 diabetes mellitus): Code(s): E11.9 - Type 2 diabetes mellitus without complications Plan: Follow healthy plate method (2) Morbid obesity due to excess calories: Code(s): E66.01 - Morbid (severe) obesity due to excess calories Plan: wt: 113 kg Est kcal needs as per MSJ: 2300 (40% carb, 30% protein/fat) Est fluid needs as per 30 ml/d: 3400 ml/d Est prot per day as per 1 g/kg bw: 113 g/d Recommend fiber intake : 8-10 g per day and gradually increase to 25-28 g per day for women and 35-38 g for men or as tolerated Recommend sodium intake per day : less than 2000 mg Educated patient on: ( R = reviewed V = verbalizes understanding N/R = needs review N/A = not applicable * Food sources of carbohydrate, adequate serving sizes and its role in various health conditions: R * Differences between complex carbohydrates a simple carbohydrates, role of fiber in diet: NR * Differences between types of fats and role in diet (mono on saturated fat fatty acids, saturated fatty acids, trans fats): NR * Food sources of sodium in salt and healthy modifications for heart health in kidney health: NR * Vitamins and minerals: NR * Healthy plate method concept: R * Physical activity: Benefits a precaution: R * Hypoglycemia protocol (rule of 15): NR * Dietary prevention of Hyperglycemia: R * relationship of empty calorie foods and blood glucose level: R Patient Instructions: Follow healthy plate method at dinner Reduce on pastries/cookies Have one meal replacement a day Drink water with meals/snacks Coding Level of Care Code Nutr Indiv Intake (88842) Diagnoses T2DM (type 2 diabetes mellitus) E11.9 Morbid obesity due to excess calories E66.01 Time Spent (min) 30
[2023-06-15 10:08] VITALS: BMI 40.2
[2023-06-16 11:04] VITALS: BMI 40.2
== END 2023-06-15 10:44 | disposition home or self-care (01) ==
PROVIDERS: PCP General Practice; Visit Provider Dietitian, Registered
DX: E11.9 Type 2 diabetes mellitus without complications (principal); E66.01 Morbid (severe) obesity due to excess calories

== ENCOUNTER → 2023-06-15 09:58 | Outpatient (BNVA) | payer OTHER, SELFPAY | PROVIDERS: PCP General Practice; Visit Provider Dietitian, Registered | DX: E11.9 Type 2 diabetes mellitus without complications (principal); E66.01 Morbid (severe) obesity due to excess calories; Z68.41 Body mass index [BMI] 40.0-44.9, adult | CPT/HCPCS: 97802 ==

== ENCOUNTER 2023-06-29 17:38 | Emergency (ER) | payer OTHER, SELFPAY ==
--- NOTE | ~2023-06-29 | XR_ITS ---
EXAMINATION: XR CHEST CLINICAL INFORMATION: Cough, chest pain. COMPARISON: Chest radiograph 09/14/2022. TECHNIQUE: 2 views of the chest were obtained. FINDINGS: Stable prominence of the cardiomediastinal silhouette. Again noted are sternal wires, mediastinal surgical clips and mitral annuloplasty ring. No focal consolidation, pleural effusion or pneumothorax. Stable diffuse interstitial prominence. Thoracic spondylosis. No acute osseous findings. XR/XR chest 2V IMPRESSION: No acute cardiopulmonary findings.
--- NOTE | 2023-06-29 17:42 | ECG_ITS ---
Test Reason : chest pain Blood Pressure : / mmHG Vent. Rate : 072 BPM Atrial Rate : 072 BPM P-R Int : 142 ms QRS Dur : 088 ms QT Int : 388 ms P-R-T Axes : 015 014 079 degrees QTc Int : 424 ms Normal sinus rhythm Normal ECG When compared with ECG of 14-SEP-2022 13:25, No significant change was found Referred By: Generic ED Physician Electronically Signed By:Orion Del Angel
--- NOTE | 2023-06-29 17:57 | ED_ITS ---
HPI - URI/Sore Throat General Chief Complaint: Upper Respiratory Symptoms Stated Complaint: chest pain when breathing in/to the back Time Seen by Provider: 06/29/23 22:04 Source: patient Mode of arrival: ambulatory Limitations: language barrier (Cambodian speaking only, Cambodian interpreterused) History of Present Illness HPI Narrative: 58-year-old male history diabetes mellitus, hypertension mitral valve repair who presents emergency department for evaluation cough, headache, bilateral ear pain and pleuritic chest pain x5 days. Patient states that he has a cough which is productive yellow sputum with no blood in the sputum. He states he is having pain in the center of his chest that radiates was back which is worse coughing and breathing. Patient states that he is having pain in both his ears. He had nausea and vomiting specially triggered the coughing. He denied myalgias arthralgias. He denied fatigue. States the symptoms are getting worse he came to the emergency department for evaluation. Related Data Home Medications Medication Instructions Recorded Confirmed zolpidem 10 mg tablet 10 mg PO BEDTIME PRN 07/08/21 07/10/22 Previous Rx's Medication Instructions Recorded lisinopril 10 mg tablet 10 mg PO DAILY #90 tabs 06/09/22 metoprolol succinate 100 mg 100 mg PO DAILY #90 tabs 06/26/22 tablet,extended release 24 hr simvastatin 20 mg tablet 20 mg PO BEDTIME 90 days #90 tabs 07/07/22 amoxicillin 500 mg tablet 2,000 mg (4 x 500 mg) PO ONCE PRN 07/10/22 dental procedures #4 tabs albuterol sulfate 90 mcg/actuation 1 inh inhalation QID PRN shortness 09/14/22 aerosol inhaler of breath or wheezing #6.7 grams azithromycin 250 mg tablet See Rx Instructions PO .COMPLEX #6 09/14/22 (Zithromax Z-Larry) tabs prednisone 20 mg tablet 20 mg PO BID #10 tabs 09/14/22 aspirin 81 mg tablet,delayed 81 mg PO DAILY #90 tabs 02/25/23 release acetaminophen 500 mg tablet 1,000 mg (2 x 500 mg) PO Q6H PRN 06/29/23 (Tylenol Extra Strength) fever or pain #20 tabs amoxicillin 500 mg capsule 1,000 mg (2 x 500 mg) PO TID 5 06/29/23 days #30 caps ibuprofen 400 mg tablet 400 mg PO TID PRN fever or pain 06/29/23 #30 tabs Allergies Allergy/AdvReac Type Severity Reaction Status Date / Time morphine [MORPHINE] Allergy Unknown HEADACHE Verified 06/29/23 18:01 Review of Systems 2 Review of Systems: Yes all other systems are reviewed and are negative [facility] Past Medical History [facility] Narrative: Past medical history: Diabetes mellitus, hypertension, mitral valve repair. Social history: He denies tobacco, alcohol and drug use. Onset Date is defined in the Problem List Problems that require an onset date and time if occurred within 24 hrs of arrival to the ED Aortic Dissection and Rupture; Neurologic impairment; Cardiopulmonary Arrest; Endotracheal Intubation; Insertion or Replacement of Mechanical Circulatory Assist Device Medical History HTN (hypertension) Mitral regurgitation Surgical History Status post mitral valve repair Social History Social History Alcohol intake: never Advance Directives: No Advance Directives Information Provided: No Physical Exam 2 Vital Signs: Vital Signs: Last Vital Signs Temp 97.6 F 06/29/23 17:58 Pulse 75 06/29/23 17:58 Resp 20 06/29/23 17:58 BP 159/72 H 06/29/23 17:58 Pulse Ox 96 06/29/23 17:58 O2 Del Method Room Air 06/29/23 17:58 BMI result Body Mass Index 37.1 Vital signs revealed an elevated blood pressure otherwise was unremarkable. Exam: General: Awake, alert in no distress Head: Normocephalic, atraumatic EENT: PERRL, Lids normal, sclera normal, conjunctiva normal, nose normal , ears normal, throat without erythema or exudates Neck: Supple, no adenopathy, no trachea midline or C-spine tenderness Lung: breath sounds symmetric, no wheezing, rales or rhonchi Chest: symmetric movement, nontender Heart: regular rate and rhythm, normal S1, S2 no murmurs or rubs Abdomen: soft, non-tender, nondistended, normal bowel sounds Back: no vertebral tenderness, no CVAT Extremities: no deformities, moves all extremities symmetrically Neuro: Awake, alert, oriented, normal speech, moves all extremities symmetrically Psych: Pleasant, cooperative Course Course Course Narrative: this is a rapid medical exam. Defer additional HPI, ROS, PE to prior provider. 58-year-old male with history of hypertension diabetes presents the ER with complaints of URI symptoms x5 days with chest pain and back pain x 2 days. will obtain EKG, chest x-ray, labs, viral testing VSS Medical Decision Making Medical Decision Making MDM Narrative: 58-year-old male history diabetes mellitus, hypertension mitral valve repair who presents emergency department for evaluation cough, headache, bilateral ear pain and pleuritic chest pain x5 days. Vital signs revealed an elevated blood pressure otherwise unremarkable. Physical examination revealed bilateral otitis media otherwise was unremarkable. Following evaluation was ordered: CBC, BMP, liver panel, troponin, COVID, RSV, influenza, 12 EKG 22:43 my interpretation patient's laboratory evaluation is as follows: Low platelets [id number]. Elevated glucose 137. High sensitive troponin I detectable but not elevated at 3.3. COVID-19, RSV and influenza were negative. Chest x-ray revealed no acute disease 12 EKG was unremarkable patient's presentation is consistent with acute bronchitis and bilateral otitis mediaand I did discuss this with the patient. Patient will be treated with amoxicillin 1000 mg 3 times a day times 5 days to treat for otitis media and bronchitis. Patient was also prescribed ibuprofen and Tylenol For his pleuritic chest pain. Differential Diagnosis Differential Diagnoses: The differential diagnosis associated with the presentation includes Differential diagnosis includes was not limited to pneumonia, bronchitis, viral syndrome, otitis media Admission/Observation Consideration of admission/observation: Escalation of care including admission/observation considered Lab Data [facility] Lab Attestation statement: I reviewed the patient's lab results. see MDM above 06/29/23 18:08 06/29/23 18:08 Labs: Lab Results 06/29/23 Range/Units 18:08 WBC 6.1 (4.8-10.8) X10*3/uL RBC 4.97 (4.60-5.80) X10*6/uL Hgb 14.6 (14.0-18.0) g/dl Hct 43.5 (42.0-52.0) % MCV 87.5 (80.0-98.0) fL MCH 29.4 (27.0-33.0) pg MCHC 33.6 (31.0-36.0) g/dl RDW 13.9 (11.0-16.0) % Plt Count 150 L D (160-400) X10*3/uL MPV 11.5 (9.4-12.4) fL Immature Gran % (Auto) 1.2 H (0.0-0.4) % Neut % (Auto) 61.1 (45-73) % Lymph % (Auto) 25.8 (20-40) % [place] % (Auto) 10.4 (2-11) % Eos % (Auto) 1.2 (0-4) % Baso % (Auto) 0.3 (0-2) % Lymph # (Auto) 1.6 (1.2-4.9) X10*3/uL [place] # (Auto) 0.6 (0.1-1.2) X10*3/uL Eos # (Auto) 0.1 (0.0-0.4) X10*3/uL Baso # (Auto) 0.0 (0.0-0.2) X10*3/uL Abs Immat Gran (auto) 0.07 H (0.00-0.03) X10*3/uL Absolute Neuts (auto) 3.7 (2.0-8.3) x10*3/uL Absolute Nucleated RBC 0.000 (0.0-0.012) X10*3/uL Nucleated RBC % (auto) 0.0 (0.0-0.2) /100WBC Sodium 139 (135-145) mmol/L Potassium 4.3 (3.3-5.1) mmol/L Chloride 108 (96-108) mmol/L Carbon Dioxide 22 (22-29) mmol/L Anion Gap 13 (12-20) BUN 16 (9-16) mg/dL Creatinine 0.84 (0.5-1.4) mg/dL Estim Creat Clear Calc 111.0 Estimated GFR > 60 Random Glucose 137 H (60-115) mg/dL Calcium 9.5 (8.4-10.2) mg/dL Total Bilirubin 0.2 (0.0-1.0) mg/dL Direct Bilirubin < 0.2 (0.0-0.5) mg/dL AST 29 (5-37) U/L ALT 37 (0-40) U/L Alkaline Phosphatase 86 (39-117) U/L Troponin I High Sens 3.3 (<3.5-35.0) ng/L Total Protein 7.1 (6.5-8.0) g/dL Albumin 3.8 (3.5-5.0) g/dL Influenza Type A (PCR) NEGATIVE (Negative) Influenza Type B (PCR) NEGATIVE (Negative) RSV RNA Qual (PCR) NEGATIVE (Negative) SARS-CoV-2 RNA (RT-PCR) NEGATIVE (Negative) Independent Interpretation I performed an independent interpretation of an: EKG and Plain X-Ray Interpretation: My interpretation patient chest x-ray is as follows: No acute disease. my independent interpretation patient's 12 EKG done at 17:43 hours is as follows: normal sinus rhythm with a rate of 72, normal OK interval, QRS duration QTC interval, wandering baseline, no ST segment elevation, no ST segment depression, no significant T-wave abnormalities, no PACs, no PVCs Radiology Impression Discussion of test interpretation with radiology: I have reviewed the radiologist's reading. Radiologist Impression: XR chest 2V IMPRESSION: No acute cardiopulmonary findings. Dictated By: Ellie Miranda Prescription Management I considered prescription management with: Pain Medication and Antibiotic Chronic Conditions Patient?s care impacted by: Diabetes and Hypertension Discharge Plan Discharge Clinical Impression: Chest pain, pleuritic, Bilateral otitis media Acute bronchitis Qualifiers: Bronchitis organism: other organism Qualified Code(s): J20.8 - Acute bronchitis due to other specified organisms Patient Disposition: Home, Self-Care Instructions: Acute Bronchitis (ED) Additional Instructions: Your blood work was normal pain Your COVID-19, RSV and influenza tests were negative Your chest x-ray did not reveal any pneumonia. Your symptoms are consistent with bronchitis (infection of your breathing tubes) Take ibuprofen 200 mg pills, 2 pills every 6 hours as needed for pain or fever. Take Tylenol (acetaminophen) 500 mg pills, 2 pills every 6 hours as needed for pain or fever. Take amoxicillin 500 mg pills, 2 pills, every 6 hours (3 times a day) for 5 days. Follow-up with your doctor in 2 days. Please return to the emergency department if your symptoms get worse or if you develop any symptoms that are concerning to you. Prescriptions: New amoxicillin 500 mg capsule 1,000 mg PO TID 5 Days Qty: 30 0RF acetaminophen [Tylenol Extra Strength] 500 mg tablet 1,000 mg PO Q6H PRN (Reason: fever or pain) Qty: 20 0RF ibuprofen 400 mg tablet 400 mg PO TID PRN (Reason: fever or pain) Qty: 30 0RF No Action lisinopril 10 mg tablet 10 mg PO DAILY Qty: 90 3RF metoprolol succinate 100 mg tablet extended release 24 hr 100 mg PO DAILY Qty: 90 3RF simvastatin 20 mg tablet 20 mg PO BEDTIME 90 Days Qty: 90 3RF aspirin 81 mg tablet,delayed release (DR/EC) 81 mg PO DAILY Qty: 90 3RF azithromycin [Zithromax Z-Larry] 250 mg tablet See Rx Instructions .ROUTE .COMPLEX Qty: 6 0RF Rx Instructions: For 250 mg dose pack: take 500 mg today (day 1), then 250 mg for 4 days (days 2-5) prednisone 20 mg tablet 20 mg PO BID Qty: 10 0RF albuterol sulfate 90 mcg/actuation HFA aerosol inhaler 1 inh inhalation QID PRN (Reason: shortness of breath or wheezing) Qty: 6.7 0RF zolpidem 10 mg tablet 10 mg PO BEDTIME PRN amoxicillin 500 mg tablet 2,000 mg PO ONCE PRN (Reason: dental procedures) Qty: 4 3RF Print Language: Cambodian
[2023-06-29 17:58] VITALS: BP 159/72; PULSE 75; RESP 20; TEMP 36.4; O2SAT 96; BMI 37.1
--- NOTE | 2023-06-29 18:11 | MHC.EDTECH ---
Patient ekg taken and was read by Provider ,blood drawn ,rsv/covid swab collected and sent to lab .
[2023-06-29 18:13] LABS: MANUAL DIFF FLAG NO
[2023-06-29 18:26] LABS: Basophils Percent Auto 0.3 % (0-2); Eosinophils Absolute Auto 0.1 X10*3/uL (0.0-0.4); Eosinophils Percent Auto 1.2 % (0-4); Hematocrit 43.5 % (42.0-52.0); Hemoglobin 14.6 g/dl (14.0-18.0); Imm Gran Abs Auto 0.07 X10*3/uL (0.00-0.03); Imm Gran Pct Auto 1.2 % (0.0-0.4); Lymphocytes Absolute Auto 1.6 X10*3/uL (1.2-4.9); Lymphocytes Percent Auto 25.8 % (20-40); Mean Corpuscular HGB Conc 33.6 g/dl (31.0-36.0); Mean Corpuscular Hemoglobin 29.4 pg (27.0-33.0); Mean Corpuscular Volume 87.5 fL (80.0-98.0); Mean Platelet Volume 11.5 fL (9.4-12.4); Monocytes Absolute Auto 0.6 X10*3/uL (0.1-1.2); Monocytes Percent Auto 10.4 % (2-11); Neutrophils Absolute Auto 3.7 x10*3/uL (2.0-8.3); Neutrophils Percent Auto 61.1 % (45-73); Platelet Count 150 X10*3/uL (160-400); Red Blood Count 4.97 X10*6/uL (4.60-5.80); Red Cell Distribution Width 13.9 % (11.0-16.0); White Blood Count 6.1 X10*3/uL (4.8-10.8)
[2023-06-29 18:35] LABS: Alanine Aminotransferase 37 U/L (0-40); Albumin Level 3.8 g/dL (3.5-5.0); Alkaline Phosphatase 86 U/L (39-117); Anion Gap 13 (12-20); Aspartate Amino Transferase 29 U/L (5-37); Bilirubin Direct < 0.2 mg/dL (0.0-0.5); Bilirubin Total 0.2 mg/dL (0.0-1.0); Blood Urea Nitrogen 16 mg/dL (9-16); Calcium 9.5 mg/dL (8.4-10.2); Carbon Dioxide 22 mmol/L (22-29); Chloride 108 mmol/L (96-108); Estimated Glomerular Filt Rate > 60; Glucose Random 137 mg/dL (60-115); Potassium 4.3 mmol/L (3.3-5.1); Sodium 139 mmol/L (135-145); Total Protein 7.1 g/dL (6.5-8.0)
[2023-06-29 18:41] LABS: Troponin-I High Sensitivity 3.3 ng/L (<3.5-35.0)
[2023-06-29 18:52] LABS: Influenza A PCR NEGATIVE (Negative); Influenza B PCR NEGATIVE (Negative); Resp Syncy Virus RNA Qual PCR NEGATIVE (Negative); SARS COV2 PCR INHOUSE NEGATIVE (Negative)
[2023-06-29 22:24] VITALS: BP 160/70; PULSE 76; RESP 20; TEMP 36.7; O2SAT 97
[2023-06-29] MEDS: Ibuprofen 400 MG TABLET PO (22:37)
[2023-06-29] MEDS: Amoxicillin 500 MG CAPSULE 1000 MG PO (22:37)
== END 2023-06-29 23:13 | disposition home or self-care (01) ==
PROVIDERS: Nurse Practitioner Family; Emergency Provider Emergency Medicine Emergency Medical Services; PCP General Practice
DX: J20.8 Acute bronchitis due to other specified organisms (principal); R07.9 Chest pain, unspecified; H66.93 Otitis media, unspecified, bilateral; Z20.822 Contact with and (suspected) exposure to COVID-19; Z20.828 Contact with and (suspected) exposure to other viral communicable diseases; E11.9 Type 2 diabetes mellitus without complications; I10 Essential (primary) hypertension; Z79.82 Long term (current) use of aspirin; Z79.899 Other long term (current) drug therapy
CPT/HCPCS: 0241U; 71046; 80048; 80076; 84484; 85025; 93005; 99283; 99285

== ENCOUNTER → 2023-06-29 17:42 | Outpatient (BNV) | payer OTHER, SELFPAY | PROVIDERS: Emergency Provider Emergency Medicine Emergency Medical Services; PCP General Practice; Visit Provider Internal Medicine Cardiovascular Disease | DX: R07.9 Chest pain, unspecified (principal) | CPT/HCPCS: 93010 ==

== ENCOUNTER 2023-07-23 09:38 | Outpatient (AMB) | payer OTHER, SELFPAY ==
[2023-07-23 09:44] VITALS: BMI 39.8
--- NOTE | 2023-07-23 09:44 | A.OFFVIS_ITS ---
Intake VS Expanded 07/23/23 09:44 Height 5 ft 6 in Weight 246 lb 11.156 oz BMI 39.8 Intake Visit Reasons: obestiy/LVM Allergies morphine [MORPHINE] Allergy (Unknown, Verified 06/29/23 18:01) HEADACHE HPI Nutrition Presentation Details Pt presents for MNT for obesity Pt reports working on diet modifications - including fish 1x/wk -reducing on fried foods, including fish at least once per week, baked Did not bring glucometer to this appt Physical activity: daily life activities ETOH/SMokingDenies Most Recent Diabetes Results: Creatinine 0.84 mg/dL (0.5-1.4) 06/29/23 Blood Urea Nitrogen 16 mg/dL (9-16) 06/29/23 Sodium 139 mmol/L (135-145) 06/29/23 Potassium 4.3 mmol/L (3.3-5.1) 06/29/23 Chloride 108 mmol/L (96-108) 06/29/23 Carbon Dioxide 22 mmol/L (22-29) 06/29/23 Calcium 9.5 mg/dL (8.4-10.2) 06/29/23 AST 29 U/L (5-37) 06/29/23 ALT 37 U/L (0-40) 06/29/23 Total Protein 7.1 g/dL (6.5-8.0) 06/29/23 Albumin 3.8 g/dL (3.5-5.0) 06/29/23 [facility] Medical History HTN (hypertension) Mitral regurgitation Surgical History Status post mitral valve repair Social History Alcohol intake: never Assessment & Plan Assessment & Plan (1) T2DM (type 2 diabetes mellitus): Code(s): E11.9 - Type 2 diabetes mellitus without complications Plan: Follow healthy plate method, reduce salt - see list of low sodium options (2) Morbid obesity due to excess calories: Code(s): E66.01 - Morbid (severe) obesity due to excess calories Plan: wt: 113 kg Est kcal needs as per MSJ: 2300 (40% carb, 30% protein/fat) Est fluid needs as per 30 ml/d: 3400 ml/d Est prot per day as per 1 g/kg bw: 113 g/d Recommend fiber intake : 8-10 g per day and gradually increase to 25-28 g per day for women and 35-38 g for men or as tolerated Recommend sodium intake per day : less than 2000 mg Educated patient on: ( R = reviewed V = verbalizes understanding N/R = needs review N/A = not applicable * Food sources of carbohydrate, adequate serving sizes and its role in various health conditions: R * Differences between complex carbohydrates a simple carbohydrates, role of fiber in diet: NR * Differences between types of fats and role in diet (mono on saturated fat fatty acids, saturated fatty acids, trans fats): NR * Food sources of sodium in salt and healthy modifications for heart health in kidney health: NR * Vitamins and minerals: NR * Healthy plate method concept: R * Physical activity: Benefits a precaution: R (has treadmill at home) * relationship of empty calorie foods and blood glucose level: R Patient Instructions: follow healthy plate method at dinner time, continue working on reducing intake of high fat/fried foods Work on reducing salt intake (no salt added, choose seasonings with less salt, read food labels) continue choosing water and low sugar beverages Coding Level of Care Code Nutr Indiv Subseq (19916) Diagnoses T2DM (type 2 diabetes mellitus) E11.9 Morbid obesity due to excess calories E66.01 Time Spent (min) 30
== END 2023-07-23 10:15 | disposition home or self-care (01) ==
PROVIDERS: PCP General Practice; Visit Provider Dietitian, Registered
DX: E11.9 Type 2 diabetes mellitus without complications (principal); E66.01 Morbid (severe) obesity due to excess calories

== ENCOUNTER → 2023-07-23 09:38 | Outpatient (BNVA) | payer OTHER, SELFPAY | PROVIDERS: PCP General Practice; Visit Provider Dietitian, Registered | DX: E66.01 Morbid (severe) obesity due to excess calories (principal); E11.9 Type 2 diabetes mellitus without complications; Z68.39 Body mass index [BMI] 39.0-39.9, adult | CPT/HCPCS: 97803 ==

== ENCOUNTER 2023-09-17 13:43 | Outpatient (AMB) | payer OTHER, SELFPAY ==
[2023-09-17 13:45] VITALS: BMI 39.2
--- NOTE | 2023-09-17 13:45 | A.OFFVIS_ITS ---
Intake VS Expanded 09/17/23 13:45 Height 5 ft 6 in Weight 243 lb 2.718 oz BMI 39.2 Intake Visit Reasons: obesity Allergies morphine [MORPHINE] Allergy (Unknown, Verified 06/29/23 18:01) HEADACHE HPI Nutrition Presentation Details Pt presents for MNT for T2DM, obesity Pt reports having a better meal routine, working on reducing breads, fried foods, gradually working on dietary modfications Walking as able 10 min 2-3 times a day Most Recent Diabetes Results: Creatinine 0.84 mg/dL (0.5-1.4) 06/29/23 Blood Urea Nitrogen 16 mg/dL (9-16) 06/29/23 Sodium 139 mmol/L (135-145) 06/29/23 Potassium 4.3 mmol/L (3.3-5.1) 06/29/23 Chloride 108 mmol/L (96-108) 06/29/23 Carbon Dioxide 22 mmol/L (22-29) 06/29/23 Calcium 9.5 mg/dL (8.4-10.2) 06/29/23 AST 29 U/L (5-37) 06/29/23 ALT 37 U/L (0-40) 06/29/23 Total Protein 7.1 g/dL (6.5-8.0) 06/29/23 Albumin 3.8 g/dL (3.5-5.0) 06/29/23 [facility] Medical History HTN (hypertension) Mitral regurgitation Surgical History Status post mitral valve repair Social History Alcohol intake: never Assessment & Plan Assessment & Plan (1) T2DM (type 2 diabetes mellitus): Code(s): E11.9 - Type 2 diabetes mellitus without complications Plan: Follow healthy plate method, reduce salt - see list of low sodium options (2) Morbid obesity due to excess calories: Code(s): E66.01 - Morbid (severe) obesity due to excess calories Plan: wt: 113 kg (06/2023), 110 kg (09/19) Est kcal needs as per MSJ: 2300 (40% carb, 30% protein/fat) Est fluid needs as per 30 ml/d: 3300 ml/d Est prot per day as per 1 g/kg bw: 110 g/d Recommend fiber intake : 8-10 g per day and gradually increase to 25-28 g per day for women and 35-38 g for men or as tolerated Recommend sodium intake per day : less than 2000 mg Educated patient on: ( R = reviewed V = verbalizes understanding N/R = needs review N/A = not applicable * Food sources of carbohydrate, adequate serving sizes and its role in various health conditions: R * Differences between complex carbohydrates a simple carbohydrates, role of fiber in diet: R * Differences between types of fats and role in diet (mono on saturated fat fatty acids, saturated fatty acids, trans fats): NR * Food sources of sodium in salt and healthy modifications for heart health in kidney health: R * Vitamins and minerals: NR * Healthy plate method concept: R * Physical activity: Benefits a precaution: R (has treadmill at home) * relationship of empty calorie foods and blood glucose level: R Patient Instructions: Have a fruit or yogurt at bedtime snack in place of salted crackers see education material on low sodium food concepts Coding Level of Care Code Nutr Indiv Subseq ([id number]) Diagnoses T2DM (type 2 diabetes mellitus) E11.9 Morbid obesity due to excess calories E66.01 Time Spent (min) 20
== END 2023-09-17 14:15 | disposition home or self-care (01) ==
PROVIDERS: PCP General Practice; Visit Provider Dietitian, Registered
DX: E11.9 Type 2 diabetes mellitus without complications (principal); E66.01 Morbid (severe) obesity due to excess calories

== ENCOUNTER → 2023-09-17 13:43 | Outpatient (BNVA) | payer OTHER, SELFPAY | PROVIDERS: PCP General Practice; Visit Provider Dietitian, Registered | DX: E66.01 Morbid (severe) obesity due to excess calories (principal); E11.9 Type 2 diabetes mellitus without complications; Z71.3 Dietary counseling and surveillance; Z68.39 Body mass index [BMI] 39.0-39.9, adult | CPT/HCPCS: 97803 ==

== ENCOUNTER 2023-11-18 10:20 | Outpatient (AMB) | payer OTHER, SELFPAY ==
[2023-11-18 10:32] VITALS: BP 118/78; BMI 39.5
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
== END 2023-11-18 11:08 | disposition home or self-care (01) ==
PROVIDERS: PCP General Practice; Visit Provider Internal Medicine Cardiovascular Disease
DX: Z98.890 Other specified postprocedural states (principal); I10 Essential (primary) hypertension
CPT/HCPCS: 93010; 99214

== ENCOUNTER → 2023-11-18 10:20 | Outpatient (BNVA) | payer OTHER, SELFPAY | PROVIDERS: PCP General Practice; Visit Provider Internal Medicine Cardiovascular Disease | DX: I10 Essential (primary) hypertension (principal); Z98.890 Other specified postprocedural states | CPT/HCPCS: 93005; 99212 ==

== ENCOUNTER → 2023-12-22 10:55 | Outpatient (REF) | payer OTHER, SELFPAY ==
--- NOTE | 2023-12-22 10:57 | CA_ITS ---
Transthoracic Echocardiogram Patient (Last, First, Middle): Guy Granado, Gender: Male Date of : 1965 Age: 58 Procedure Date: 12/22/2023 Procedure Type: Transthoracic Echocardiogram Location: OP Height: 167.64 cm Weight: 111.59 kg BSA: 2.18 m2 Heart Rate: bpm BP: 138 / 90 mmHg Activities Volunteer: KARL Referring MD: Chris Mcginnis MD Breaster: Chris Mcginnis MD Symptoms: s/p MVR Study Quality: Technically Difficult, contrast ECG Rhythm: Sinus Conclusions: - 1. Technically limited study despite the use of contrast agent 2. Normal LV ejection fraction of 60-65% with moderate LVH 3. Reported mitral valve repair appears to be functioning well 4. Mildly dilated ascending aorta Findings Procedure Information Contrast agent, definity, is being given per protocol without apparent complications. Left Ventricle Normal left ventricular size and systolic function. There is moderately increased left ventricular wall thickness. The visually estimated ejection fraction is between 60-65%. Spectral Doppler is indicative of a pseudonormal filling pattern. Right Ventricle The right ventricle was not well visualized. Atria The left atrium is mildly dilated. Interatrial shunt cannot be excluded. The right atrium was not well visualized. Aortic Valve The aortic valve was not well visualized. Mitral Valve The mitral valve was not well visualized. There is moderate posterior mitral leaflet thickening. There is no mitral valve regurgitation. There is no mitral valve stenosis. reported prior mitral valve repair although the mitral valve is not well visualized. There is no significant mitral stenosis or mitral regurgitation. Pulmonic Valve The pulmonic valve was not well visualized. Tricuspid Valve The tricuspid valve was not well visualized. There is mild tricuspid valve regurgitation. There is no evidence of pulmonary hypertension. Great Vessels The aorta was not well visualized. The pulmonary artery was not well visualized. There is mild dilatation of the ascending aorta measuring 3.90 cm. Venous The inferior vena cava is normal in size. Pericardium/Pleural The pericardium was not well visualized. Prior Study Comparison Changes noted compared to prior study dated: 06/06/2022. Moderate LVH is noted. Ascending aorta is mildly dilated Measurements 2D Linear Measurements IVSd: 1.54 0.6-0.9/0.6-1.0 cm LVIDd: 5.81 3.9-5.3/4.2-5.9 cm LVIDd Index: 2.67 2.4-3.2/2.2-3.1 cm/m2 LVIDs: 4.33 2.0-3.6 cm LVPWd: 1.56 0.7-1.1 cm LA Diam: 5.10 2.7-3.8/3.0-4.0 cm LAIDs Index: 2.34 1.5-2.3 cm/m2 LV Mass: 531.67 67-162/88-224 g LV Mass Index: 243.89 43-95/49-115 g/m2 LVOT Diam: 2.40 3.0+(-)1.3 cm 2D Systolic Function EF 4C: 51.70 >55% EF 2C: 70.70 >55% EF BiP: 63.60 >55% Mitral Valve MV VTI: 0.58 MV Pk Ramin: 1.72 MV Mn Ramin: 1.09 MV Pk Grad: 12.00 MV Mn Grad: 5.00 MV Pk E: 1.30 MV PK A: 1.34 MV Decel Time: 400.00 E/A: 1.00 E'Lateral: 4.79 E'Medial: 5.77 E/E' Med: 22.50 E/E' Lat: 27.10 PHT: 117.00 MVA PHT: 1.88 MVA Continuity: 2.00 Decel Coal: 3.25 Aortic Valve AoV Pk Ramin: 1.48 AoV Mn Ramin: 0.92 AoV VTI: 0.31 AoV Pk Grad: 9.00 Aov Mn Grad: 4.00 LEILA Cont.VTI: 3.72 LVOT LVOT Pk Ramin: 1.29 LVOT Mn Ramin: 0.81 LVOT VTI: 0.26 LVOT Pk Grad: 7.00 LVOT Mn Grad: 3.00 LVOT Diam: 2.40 LVOT Area: 4.52 Diastolic Function MV Pk E: 1.30 MV Pk A: 1.34 E/A: 1.00 E'Medial: 5.77 E/E' Med: 22.50 E' Laterial: 4.79 E/E' Lat: 27.10 Right Ventricle TAPSE (mm): 25.90 TVS' Ramin: 11.70 Tricuspid Valve TR Pk Ramin: 2.61 TR Pk Grad: 27.00 RA Press: 3.00 RVSP: 30.00 Great Vessels Aorta Sinus of Valsalva: 4.19 2.0-3.[address] [place]: 3.18 1.7-3.4 cm Ao Asc: 3.90 2.1-3.4 cm Updated in Other Vendor System with Status of Final Chris Mcginnis MD electronically signed on 12/23/2023 2:13:23 PM with status of Final
== END ==
LOC: HO.CARD 10:55
PROVIDERS: Visit Provider Internal Medicine Cardiovascular Disease
DX: Z98.890 Other specified postprocedural states (principal)
CPT/HCPCS: 93306; Q9957

== ENCOUNTER → 2023-12-22 10:57 | Outpatient (BNV) | payer OTHER, SELFPAY | PROVIDERS: Visit Provider Internal Medicine Cardiovascular Disease | DX: R93.1 Abnormal findings on diagnostic imaging of heart and coronary circulation (principal); Z95.4 Presence of other heart-valve replacement | CPT/HCPCS: 93306 ==

== ENCOUNTER 2024-10-22 09:31 | Emergency (ER) | payer OTHER, SELFPAY ==
--- NOTE | ~2024-10-22 | CT_ITS ---
CLINICAL HISTORY: llq tenderness, hx colon resection 1986 CT abdomen and pelvis with contrast Comparison: None Findings: No consolidation or effusion. The liver, gallbladder, spleen, adrenal glands and pancreas are normal. Kidneys, ureters and bladder are normal. The prostate gland is mildly enlarged. There is a focal segment of abnormal thickening involving the sigmoid colon, axial images 53-60 and coronal 46-50. There is mild stranding and a few small lymph nodes are present adjacent to this, reference coronal 46. No free air or abscess. Osseous structures demonstrate no acute process. There are prominent degenerative and postsurgical changes at L5-S1. Impression: Abnormal focal thickening involving the sigmoid colon with mild surrounding stranding. While this may reflect focal diverticulitis, GI follow-up is recommended to exclude malignancy. This document has been electronically signed by: Ras Gonsalez MD on 10/22/2024 11:50:33
[2024-10-22 09:50] VITALS: BP 131/86; PULSE 88; RESP 18; TEMP 36.9; O2SAT 98; BMI 38.2
[2024-10-22 10:33] LABS: MANUAL DIFF FLAG NO
--- NOTE | 2024-10-22 10:35 | ED_ITS ---
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 Reports initially he noticed a small amount of bright red bleeding with bowel movements. Yesterday noted more blood clots. Denies fever, vomiting, diarrhea. Reports known history of hemorrhoids. Reports abdominal surgery in [place] in 1985, likely bowel resection. MD complaint: abdominal pain, rectal bleeding Onset (ago): day(s) Related Data Home Medications ?Medication ?Instructions ?Recorded ?Confirmed zolpidem 10 mg tablet 10 mg PO BEDTIME PRN 07/08/21 11/18/23 Previous Rx's ?Medication ?Instructions ?Recorded lisinopril 10 mg tablet 10 mg PO DAILY #90 tabs 06/09/22 metoprolol succinate 100 mg 100 mg PO DAILY #90 tabs 06/26/22 tablet,extended release 24 hr simvastatin 20 mg tablet 20 mg PO BEDTIME 90 days #90 tabs 07/07/22 amoxicillin 500 mg tablet 2,000 mg (4 x 500 mg) PO ONCE PRN 07/10/22 dental procedures #4 tabs albuterol sulfate 90 mcg/actuation 1 inh inhalation QID PRN shortness 09/14/22 aerosol inhaler of breath or wheezing #6.7 grams acetaminophen 500 mg tablet 1,000 mg (2 x 500 mg) PO Q6H PRN 06/29/23 (Tylenol Extra Strength) fever or pain #20 tabs ibuprofen 400 mg tablet 400 mg PO TID PRN fever or pain 06/29/23 #30 tabs aspirin 81 mg tablet,delayed 81 mg PO DAILY #90 tabs 02/19/24 release amoxicillin 875 mg-potassium 1 tab PO BID #14 tabs 10/22/24 clavulanate 125 mg tablet pramoxine 1 % topical foam 1 appl IA TID #15 grams 10/22/24 (Proctofoam) Allergies Allergy/AdvReac Type Severity Reaction Status Date / Time morphine [MORPHINE] Allergy Unknown HEADACHE Verified 10/22/24 09:52 Review of Systems 2 Review of Systems: Yes all other systems are reviewed and are negative Constitutional: Constitutional: Reports as per [facility] Past Medical History Medical History HTN (hypertension) Mitral regurgitation Surgical History Status post mitral valve repair Social History Social History Alcohol intake: never Advance Directives: No Advance Directives Information Provided: No Physical Exam ED Vital Signs: Vital Signs - 24 hr 10/22/24 09:50 Temperature 98.4 F Pulse Rate 88 Respiratory Rate 18 Blood Pressure 131/86 Pulse Oximetry 98 Oxygen Delivery Method Room Air BMI result Body Mass Index 38.2 Vital signs have been reviewed and appear to be correct. Blood pressure normal. Heart rate normal. Respiratory rate normal. Temperature normal. Oxygen saturation normal. Const General: cooperative, healthy appearing and no acute distress Orientation/consciousness: oriented to person, oriented to place, oriented to time and patient oriented x3 Limitations: no limitations HENMT Head: Yes normocephalic and Yes atraumatic Ears: external ears normal General nose exam: Normal external nose present Face and sinus: Yes face symmetric Mouth: oropharynx normal and moist mucous membranes Throat: Yes uvula midline Eyes Pupils: Equal, round and reactive pupils present Neck Neck: Yes normal visual inspection and Yes supple Resp Effort & Inspection: normal respiratory effort and able to speak in complete sentences Auscultation: clear to auscultation bilaterally Cardio Rate: regular rate Rhythm: regular rhythm Heart sounds: S1 normal heart sound present and S2 normal heart sound present GI Other: exam chaperoned by BERNADINE Amezcua Inspection: Yes scar Palpation (GI): Soft to palpation, Tenderness to palpation present (GI) in the LLQ, no guarding and No Rebound tenderness present Auscultation: normoactive bowel sounds Rectal Exam - Male: Yes External hemorrhoid(s) present and Yes tenderness General: Yes no CVA tenderness Back/Spine/Pelvis Back: no CVA tenderness Skin General skin exam: elasticity normal and turgor normal Neuro General: oriented to person, oriented to place, oriented to time, patient oriented x3, moves all extremities, no focal motor deficits and CN's II-XI intact bilaterally Cranial nerves: Yes Equal, round and reactive pupils present Cognition (Neuro): normal cognition Extrem General: Yes full ROM, Yes no pedal edema and Yes no calf tenderness Psych Mental Status: mental status grossly normal Affect: normal affect Thought process: Normal thought process present Medications Administered Discontinued Medications Generic Name Dose Route Start Last Admin Trade Name Pankaj PRN Reason Stop Dose Admin Acetaminophen 975 mg 10/22/24 11:50 10/22/24 11:57 Acetaminophen 325 Mg Tablet PO 10/22/24 11:51 975 mg ONCE ONE Administration Amoxicillin/Clavulanate Potassium 875 mg 10/22/24 11:50 10/22/24 11:57 Amoxicillin/Potassium Clav 875 Mg Tablet PO 10/22/24 11:51 875 mg ONCE ONE Administration Iohexol 100 ml 10/22/24 11:18 10/22/24 11:19 Iohexol 350 Mg/Ml 100 Ml Infus..Btl IV 10/22/24 11:19 85 ml ONCE ONE Administration Medical Decision Making Medical Decision Making [facility] Narrative: Patient is a 59-year-old male with history of T2 DM, HTN, obesity, status post mitral valve repair on aspirin presenting to the emergency department with complaint of left lower quadrant abdominal pain and rectal bleeding since Thursday. On exam patient is awake, A+Ox3, VS WNL, afebrile, normal neurological exam without focal deficits, physical exam findings as above. Given reported symptoms and physical exam findings, initial differential includes but is not limited to hemorrhoids, anemia, lower GI bleed, diverticulitis, IBD. Labs notable for normal H&H, no other significant abnormalities. CT A/P notable for diverticulitis, as well as abnormal thickening of signmoid colon, unable to exclude malignancy. My interpretation is in agreement with the radiologist's interpretation. Results discussed with patient and all questions answered. Will treat with course of Augmentin and referred to GI for further evaluation and management. Stressed abnormal results and importance of follow-up. Return precautions discussed. Patient verbalized understanding of and agreement with plan. In-person export freight specialist was utilized for all interactions, assessments, and discussions. Differential Diagnosis Differential Diagnoses: The differential diagnosis associated with the presentation includes As per [facility] Admission/Observation Consideration of admission/observation: Escalation of care including admission/observation considered Lab Data [facility] Lab Attestation statement: I reviewed the patient's lab results. As per [facility] 10/22/24 10:29 10/22/24 10:29 Labs: Lab Results 10/22/24 Range/Units 10:29 WBC 5.7 (4.8-10.8) X10*3/uL RBC 4.71 (4.60-5.80) X10*6/uL Hgb 13.8 L (14.0-18.0) g/dl Hct 41.0 L (42.0-52.0) % MCV 87.0 (80.0-98.0) fL MCH 29.3 (27.0-33.0) pg MCHC 33.7 (31.0-36.0) g/dl RDW 14.0 (11.0-16.0) % Plt Count 148 L (160-400) X10*3/uL MPV 10.9 (9.4-12.4) fL Immature Gran % (Auto) 0.4 (0.0-0.4) % Neut % (Auto) 57.4 (45-73) % Lymph % (Auto) 31.6 (20-40) % Hamlin % (Auto) 8.6 (2-11) % Eos % (Auto) 1.8 (0-4) % Baso % (Auto) 0.2 (0-2) % Lymph # (Auto) 1.8 (1.2-4.9) X10*3/uL Hamlin # (Auto) 0.5 (0.1-1.2) X10*3/uL Eos # (Auto) 0.1 (0.0-0.4) X10*3/uL Baso # (Auto) 0.0 (0.0-0.2) X10*3/uL Abs Immat Gran (auto) 0.02 (0.00-0.03) X10*3/uL Absolute Neuts (auto) 3.3 (2.0-8.3) x10*3/uL Absolute Nucleated RBC 0.000 (0.0-0.012) X10*3/uL Nucleated RBC % (auto) 0.0 (0.0-0.2) /100WBC Sodium 140 (135-145) mmol/L Potassium 4.3 (3.3-5.1) mmol/L Chloride 107 (96-108) mmol/L Carbon Dioxide 28 (22-29) mmol/L Anion Gap 9 L (12-20) BUN 12 (9-16) mg/dL Creatinine 0.85 (0.5-1.4) mg/dL Estim Creat Clear Calc 110.2 Estimated GFR > 60 Random Glucose 95 (60-115) mg/dL Calcium 9.2 (8.4-10.2) mg/dL Total Bilirubin 0.5 (0.0-1.0) mg/dL AST 34 (5-37) U/L ALT 38 (0-40) U/L Alkaline Phosphatase 88 (39-117) U/L Total Protein 6.9 (6.5-8.0) g/dL Albumin 3.9 (3.5-5.0) g/dL Independent Interpretation I performed an independent interpretation of an: CT Scan Interpretation: CT A/P notable for diverticulitis, as well as abnormal thickening of signmoid colon, unable to exclude malignancy. Radiology Impression Discussion of test interpretation with radiology: I have reviewed the radiologist's reading. Radiologist Impression: CT abdomen and pelvis with contrast Comparison: None Findings: No consolidation or effusion. The liver, gallbladder, spleen, adrenal glands and pancreas are normal. Kidneys, ureters and bladder are normal. The prostate gland is mildly enlarged. There is a focal segment of abnormal thickening involving the sigmoid colon, axial images 53-60 and coronal 46-50. There is mild stranding and a few small lymph nodes are present adjacent to this, reference coronal 46. No free air or abscess. Osseous structures demonstrate no acute process. There are prominent degenerative and postsurgical changes at L5-S1. Impression: Abnormal focal thickening involving the sigmoid colon with mild surrounding stranding. While this may reflect focal diverticulitis, GI follow-up is recommended to exclude malignancy. External Record Review External record reviewed: Inpatient record, Office record and Outpatient record Prescription Management I considered prescription management with: Antibiotic Discharge Plan Discharge Clinical Impression: Diverticulitis, Hemorrhoids, Abnormal CT of the abdomen Patient Disposition: Home, Self-Care Instructions: Diverticulitis (ED), Hemorrhoids (DC) Additional Instructions: You were evaluated in the emergency department today for abdominal pain and rectal bleeding. Your rectal bleeding is likely due to your hemorrhoids. You are being prescribed medications for this. The CT scan of your abdomen shows diverticulitis, and you are being treated with antibiotics. The CT scan also showed an abnormal thickening of your colon, and you will need to follow up with the classification clerk for further evaluation of this. Take the full course of antibiotics as prescribed. Return to the emergency department if you develop worsening pain, persistent vomiting, fever, worsening blood in your stool or any other new or concerning symptoms. CT abdomen and pelvis with contrast Comparison: None Findings: No consolidation or effusion. The liver, gallbladder, spleen, adrenal glands and pancreas are normal. Kidneys, ureters and bladder are normal. The prostate gland is mildly enlarged. There is a focal segment of abnormal thickening involving the sigmoid colon, axial images 53-60 and coronal 46-50. There is mild stranding and a few small lymph nodes are present adjacent to this, reference coronal 46. No free air or abscess. Osseous structures demonstrate no acute process. There are prominent degenerative and postsurgical changes at L5-S1. Impression: Abnormal focal thickening involving the sigmoid colon with mild surrounding stranding. While this may reflect focal diverticulitis, GI follow-up is recommended to exclude malignancy. Prescriptions: New amoxicillin-pot clavulanate 875-125 mg tablet 1 tab PO BID Qty: 14 0RF pramoxine [Proctofoam] 1 % foam 1 appl IA TID Qty: 15 0RF No Action lisinopril 10 mg tablet 10 mg PO DAILY Qty: 90 3RF metoprolol succinate 100 mg tablet extended release 24 hr 100 mg PO DAILY Qty: 90 3RF simvastatin 20 mg tablet 20 mg PO BEDTIME 90 Days Qty: 90 3RF aspirin 81 mg tablet,delayed release (DR/EC) 81 mg PO DAILY Qty: 90 3RF albuterol sulfate 90 mcg/actuation HFA aerosol inhaler 1 inh inhalation QID PRN (Reason: shortness of breath or wheezing) Qty: 6.7 0RF acetaminophen [Tylenol Extra Strength] 500 mg tablet 1,000 mg PO Q6H PRN (Reason: fever or pain) Qty: 20 0RF ibuprofen 400 mg tablet 400 mg PO TID PRN (Reason: fever or pain) Qty: 30 0RF zolpidem 10 mg tablet 10 mg PO BEDTIME PRN amoxicillin 500 mg tablet 2,000 mg PO ONCE PRN (Reason: dental procedures) Qty: 4 3RF Referrals: [facility]Provider Group] - 1 week (CT abdomen and pelvis with contrast Comparison: None Findings: No consolidation or effusion. The liver, gallbladder, spleen, adrenal glands and pancreas are normal. Kidneys, ureters and bladder are normal. The prostate gland is mildly enlarged. There is a focal segment of abnormal thickening involving the sigmoid colon, axial images 53-60 and coronal 46-50. There is mild stranding and a few small lymph nodes are present adjacent to this, reference coronal 46. No free air or abscess. Osseous structures demonstrate no acute process. There are prominent degenerative and postsurgical changes at L5-S1. Impression: Abnormal focal thickening involving the sigmoid colon with mild surrounding stranding. While this may reflect focal diverticulitis, GI follow-up is recommended to exclude malignancy.) Print Language: Chinese
[2024-10-22 10:39] LABS: Basophils Percent Auto 0.2 % (0-2); Eosinophils Absolute Auto 0.1 X10*3/uL (0.0-0.4); Eosinophils Percent Auto 1.8 % (0-4); Hemoglobin 13.8 g/dl (14.0-18.0); Imm Gran Abs Auto 0.02 X10*3/uL (0.00-0.03); Imm Gran Pct Auto 0.4 % (0.0-0.4); Lymphocytes Absolute Auto 1.8 X10*3/uL (1.2-4.9); Lymphocytes Percent Auto 31.6 % (20-40); Mean Corpuscular HGB Conc 33.7 g/dl (31.0-36.0); Mean Corpuscular Hemoglobin 29.3 pg (27.0-33.0); Mean Platelet Volume 10.9 fL (9.4-12.4); Monocytes Absolute Auto 0.5 X10*3/uL (0.1-1.2); Monocytes Percent Auto 8.6 % (2-11); Neutrophils Absolute Auto 3.3 x10*3/uL (2.0-8.3); Neutrophils Percent Auto 57.4 % (45-73); Platelet Count 148 X10*3/uL (160-400); Red Blood Count 4.71 X10*6/uL (4.60-5.80); White Blood Count 5.7 X10*3/uL (4.8-10.8)
[2024-10-22 11:04] LABS: Albumin Level 3.9 g/dL (3.5-5.0); Alkaline Phosphatase 88 U/L (39-117); Anion Gap 9 (12-20); Aspartate Amino Transferase 34 U/L (5-37); Bilirubin Total 0.5 mg/dL (0.0-1.0); Blood Urea Nitrogen 12 mg/dL (9-16); Calcium 9.2 mg/dL (8.4-10.2); Carbon Dioxide 28 mmol/L (22-29); Chloride 107 mmol/L (96-108); Creatinine Clr Calc Pharmacy 110.2; Estimated Glomerular Filt Rate > 60; Glucose Random 95 mg/dL (60-115); Potassium 4.3 mmol/L (3.3-5.1); Sodium 140 mmol/L (135-145); Total Protein 6.9 g/dL (6.5-8.0)
[2024-10-22] MEDS: iohexoL 350 MG/ML 100 ML INFUS..BTL IV (11:19)
[2024-10-22 11:53] LABS: Alanine Aminotransferase 38 U/L (0-40)
[2024-10-22] MEDS: Amoxicillin/Potassium Clav 875 MG TABLET PO (11:57)
[2024-10-22] MEDS: Acetaminophen 325 MG TABLET 975 MG PO (11:57)
[2024-10-22 12:42] VITALS: BP 151/95; PULSE 84; RESP 18; TEMP 36.7; O2SAT 98
== END 2024-10-22 12:49 | disposition home or self-care (01) ==
PROVIDERS: Emergency Provider Emergency Medicine; PCP Internal Medicine
DX: K57.32 Diverticulitis of large intestine without perforation or abscess without bleeding (principal); K64.9 Unspecified hemorrhoids; R93.5 Abnormal findings on diagnostic imaging of other abdominal regions, including retroperitoneum; Z79.899 Other long term (current) drug therapy
CPT/HCPCS: 36415; 74177; 80053; 85025; 99283; 99284; Q9967

== ENCOUNTER → 2024-10-22 10:47 | Outpatient (BNV) | payer OTHER, SELFPAY | PROVIDERS: Emergency Provider Emergency Medicine; PCP Internal Medicine; Visit Provider Radiology Vascular & Interventional Radiology | DX: R10.32 Left lower quadrant pain (principal) | CPT/HCPCS: 74177 ==

== ENCOUNTER 2024-11-17 09:27 | Outpatient (AMB) | payer OTHER, SELFPAY ==
[2024-11-17 09:31] VITALS: BP 140/84; PULSE 94; BMI 38.1
--- NOTE | 2024-11-17 09:31 | A.OFFVIS_ITS ---
Vital Signs 11/17/24 09:31 Height 5 ft 6 in Weight 235 lb 14.314 oz BMI 38.1 BP 140/84 H Blood Pressure Location Lt brachial Position Sitting Pulse 94 Intake Visit Reasons: 1 yr f/up Intake Note: 1 year follow-up with ekg feeling good Control Tower Operator Required: Yes Control Tower Operator Services: Control Tower Operator Present Control Tower Operator Name: beth Armenta Allergies morphine [MORPHINE] Allergy (Unknown, Verified 10/22/24 09:52) HEADACHE Medication List - Last Reconciled 11/17/24 by Chris Mcginnis MD acetaminophen (Tylenol Extra Strength) 1,000 mg (2 x 500 mg) PO Q6H PRN albuterol sulfate 90 mcg/actuation 1 inh inhalation QID PRN amoxicillin 2,000 mg (4 x 500 mg) PO ONCE PRN aspirin 81 mg PO DAILY lisinopril 10 mg PO DAILY metoprolol succinate ER 100 mg PO DAILY pramoxine 1% (Proctofoam) 1 appl [place] TID simvastatin 20 mg PO BEDTIME 90 days zolpidem 10 mg PO BEDTIME PRN HPI Comments Details: Guy comes for follow-up. He said recently was in the emergency room because of rectal bleeding and abdominal pain and was diagnose with diverticulitis. He has further testing coming up. He has been continued on aspirin therapy and has had no recurrent bleeding. History was obtained with help of underwriting service representative over the telephone. Patient said he did not take his blood pressure medication today noted to have slightly elevated blood pressure today. He has also run out of CPAP equipment in his not using his CPAP. He feels fatigued and tired. He is taking all his medication otherwise but not on a timely basis. Denies any orthopnea, PND, leg edema. No prolonged palpitation irregular heartbeat. [facility] Medical History HTN (hypertension) Mitral regurgitation Surgical History Status post mitral valve repair Social History Alcohol intake: never Review of Systems Const Denies chills, Denies fatigue, Denies fever(s), Denies frequent falls, Denies weakness, Denies weight gain and Denies weight loss ENT Denies dizziness Card Denies chest pain, Denies leg edema, Denies lightheadedness, Denies pa lpitations, Denies dyspnea, Denies dyspnea on exertion, Denies orthopnea and Denies other (loss of consciousness) Resp Denies cough, Denies dyspnea and Denies dyspnea on exertion GI Denies hematochezia and Denies change in stool character Musc Denies abnormal gait, Denies muscle weakness, Denies numbness, Denies radiating pain into limb and Denies tingling Neuro Denies abnormal gait, Denies dizziness, Denies frequent falls, Denies numbness, Denies tingling and Denies weakness Endo Denies fatigue and Denies palpitations Physical Exam Vital Signs: Last Vital Signs Pulse 94 11/17/24 09:31 BP 140/84 H 11/17/24 09:31 BMI result Body Mass Index 38.1 Const General: cooperative, comfortable, no acute distress, alert and awake Nutritional Appearance: obese Orientation/consciousness: patient oriented x3 Limitations: no limitations Neck Neck: Yes trachea midline, Yes supple and Yes no JVD Resp Effort & Inspection: normal respiratory effort Auscultation: clear to auscultation bilaterally and diminished lung sounds Cardio Jugular venous distension: no JVD Palpation: normal PMI Rate: regular rate Rhythm: regular rhythm Heart sounds: S1 normal heart sound present, S2 normal heart sound present, no click, no gallops and no murmurs GI Inspection: Yes obesity Auscultation: normal bowel sounds Skin General skin exam: no rashes or lesions noted Neuro General: patient oriented x3 and no focal motor deficits Extrem General: Yes no clubbing, cyanosis or edema and Yes other (Spider veins noted) Office Procedures EKG Details: EKG shows normal sinus rhythm with inferior infarct could be pseudo infarct pattern related to body habitus 01646-[id number], Complete Assessment & Plan Assessment & Plan (1) Status post mitral valve repair: Comment: Thoracotomy with mitral valve repair by , June 2013 Code(s): Z98.890 - Other specified postprocedural states Category: Surgical Plan: Status post mitral valve repair for severe mitral regurgitation secondary to mitral valve prolapse, last echocardiogram shows normal function of the valve. No clear significant murmurs associated with it. Continue low-dose aspirin therapy as longest tolerated from GI perspective. SBE prophylaxis as per ACC/aha guidelines. Follow-up echocardiogram near future. (2) HTN (hypertension): Code(s): I10 - Essential (primary) hypertension Category: Medical Plan: Hypertension which is not well optimized on today's exam although he says that when he takes his medications blood pressure is well controlled. Also possible that this may be elevated due to inadequate CPAP therapy. Strongly encouraged him to follow up with you to follow up and establish CPAP therapy again. Timely taking her medication was discussed. Does have hypertensive heart disease with moderate LVH with puts him at risk for development of heart failure this was discussed with him. Low-salt diet was discussed. Stress mitigation strategies was discussed. Continue participate in aggressive weight loss program. Follow up in the clinic in 14 months after the next year's echocardiogram. Thank you for allowing me to partake in his care Orders: Orders CA echo transthoracic complete 3 Weeks Z98.890 - Other specified postprocedural states Medications: Refilled amoxicillin 2,000 mg (4 x 500 mg) PO ONCE PRN 4 tabs 3RF dental procedures Z98.890 - Other specified postprocedural states Coding Level of Care Code Est Pt Level 4 (63062) Complex EM visit Add On G2211 Diagnoses Status post mitral valve repair Z98.890 HTN (hypertension) I10 CPT Codes EKG - CPT: 71789-[id number], Complete ([id number])
--- OUTSIDE RECORDS SUMMARY | 2024-11-17 09:43 | XMS_ITS | Patient Health Record ---
Author Organization [facility] Address [address], [place] [id number] Care Team Providers Care Road Inspector Name Role Phone [facility], Clinic Prima ry Care Provider Unavailable Tiara Mclaughlin Unavailable Reason For Referral No Information Encounters Encounter Location Date Provider Diagnosis [facility] [address] [place] [id number] 02/24/2024 Tiara Mclaughlin Plan Of Treatment No Information Insurance Providers Payer Name Payer Address Payer Phone Subscriber Number Group Number Insured Name Patient Relationship to Insured Coverage Start Date Coverage End Date [facility] [place] [address] [place] [phone] [id number] Guy Granado Self - patient is the insured 4
--- OUTSIDE RECORDS SUMMARY | 2024-11-17 09:43 | XMS_ITS | Clinical Summary ---
Author Organization [facility] Address [address] [place] [address] Care Team Providers Care Bridal Consultant Name Role Phone Unknown Primary Care Provider [phone] Allergies No known active allergies Social History Tobacco Use Types Packs/Day Years Used Date Smoking Tobacco: Never Assessed Sex and Gender Information Value Date Recorded Sex Assigned at Not on file Legal Sex Male 7:07 AM EDT Gender Identity Not on file Sexual Orientation Not on file Last Filed Vital Signs Vital Sign Reading Time Taken Comments Blood Pressure 137/94 02/23/2017 11:52 AM EDT Pulse 78 02/23/2017 11:52 AM EDT Temperature 36.4 ??C (97.5 ??F) 02/23/2017 7:23 AM ED T Respiratory Rate 16 02/23/2017 11:52 AM EDT Oxygen Saturation 98% 02/23/2017 11:52 AM EDT Inhaled Oxygen Concentration - - Weight - - Height - - Body Mass Index - - Plan of Treatment Health Maintenance Due Date Last Done Comments Hepatitis C Virus Screening 1965 HIV Screening 1980 DTaP/Tdap/Td Vaccines (1 - Tdap) 1986 Hepatitis B Vaccines (1 of 3 - 19+ 3-dose series) 02/1986 Colonoscopy 2012 Pneumococcal Vaccines 50+ (1 of 1 - PCV) 2017 Zoster (Shingles) Vaccine (1 of 2) 2017 COVID-19 Vaccine (1 - 2023- season) 2024 Influenza Vaccine 01/27/2025 Insurance * Guarantor: Guy Granado Account Type Relation to Patient Date of Phone Billing Address Personal/Family Self [address] [phone] MEDICARE PART A & B * Guarantor: Guy Granado Account Type Relation to Patient Date of Phone Billing Address [employer] Party Liability Self [address] [phone] [facility] (AUTO/LIABILITY) Care Teams Bridal Consultant Relationship Specialty Start Date End Date Unknown Unknow Provider Address PCP - General 02/23/17
== END 2024-11-17 09:56 | disposition home or self-care (01) ==
LOC: HO.HCS 09:28
PROVIDERS: PCP General Practice; Visit Provider Internal Medicine Cardiovascular Disease
DX: Z98.890 Other specified postprocedural states (principal); I10 Essential (primary) hypertension
CPT/HCPCS: 93010; 99214; G2211

== ENCOUNTER → 2024-11-17 09:27 | Outpatient (BNVA) | payer OTHER, SELFPAY | PROVIDERS: PCP General Practice; Visit Provider Internal Medicine Cardiovascular Disease | DX: I10 Essential (primary) hypertension (principal); R94.31 Abnormal electrocardiogram [ECG] [EKG]; Z98.890 Other specified postprocedural states | CPT/HCPCS: 93005; 99212 ==

== ENCOUNTER → 2024-12-12 15:05 | Outpatient (REF) | payer OTHER, SELFPAY ==
--- NOTE | 2024-12-12 15:07 | CA_ITS ---
Transthoracic Echocardiogram Patient (Last, First, Middle): Guy Rush, Gender: Male Date of : 1965 Age: 59 Procedure Date: 12/12/2024 Procedure Type: Transthoracic Echocardiogram Location: OP Height: 167. cm Weight: 106.6 kg BSA: 2.14 m2 Heart Rate: 86 bpm BP: 138 / 100 mmHg Car Dropper: GENO Referring MD: Chris Mcginnis MD Symptoms: Z98.890 - Other specified postprocedural states Study Quality: Fair w/Contrast ECG Rhythm: Sinus Conclusions: - The left ventricular systolic function is normal. The calculated ejection fraction is 67% by biplane method. - Status post mitral valve repair with normal function. - There is mild dilatation of the ascending aorta measuring 4.00 cm. Findings Procedure Information Contrast agent, definity, is being given per protocol without apparent complications. Left Ventricle Normal left ventricular cavity size. There is mildly increased left ventricular wall thickness. The left ventricular systolic function is normal. The calculated ejection fraction is 67% by biplane method. There is no evidence of regional wall motion abnormalities. Diastolic function is indeterminate on the basis of available data. Right Ventricle Mildly increased right ventricular cavity size. There is normal right ventricular systolic function. Atria Both atria are normal in size. Aortic Valve There is a normal trileaflet aortic valve. There is no aortic valve stenosis. There is no aortic valve regurgitation. Mitral Valve There is trace mitral valve regurgitation. There is no mitral valve stenosis. Status post mitral valve repair with normal function. Pulmonic Valve The pulmonic valve is likely normal. Tricuspid Valve There is trace tricuspid valve regurgitation. There is no evidence of pulmonary hypertension. Great Vessels The aortic arch is normal in size. There is mild dilatation of the ascending aorta measuring 4.00 cm. Venous The inferior vena cava is normal in size and collapses greater than 50% with inspiration. Pericardium/Pleural There is no evidence of pericardial effusion. Prior Study Comparison No significant change compared to prior study dated: 12/22/2023. Measurements 2D Linear Measurements IVSd: 1.03 0.6-0.9/0.6-1.0 cm LVIDd: 4.19 3.9-5.3/4.2-5.9 cm LVIDd Index: 1.96 2.4-3.2/2.2-3.1 cm/m2 LVIDs: 2.67 2.0-3.6 cm LVPWd: 1.18 0.7-1.1 cm LA Diam: 5.40 2.7-3.8/3.0-4.0 cm LAIDs Index: 2.52 1.5-2.3 cm/m2 LV Mass: 196.13 67-162/88-224 g LV Mass Index: 91.65 43-95/49-115 g/m2 LVOT Diam: 2.10 3.0+(-)1.3 cm 2D Systolic Function EF 4C: 65.70 >55% EF 2C: 64.30 >55% EF BiP: 66.60 >55% Mitral Valve MV VTI: 0.43 MV Pk Ramin: 1.38 MV Mn Ramin: 1.02 MV Pk Grad: 8.00 MV Mn Grad: 5.00 MV Pk E: 1.38 MV PK A: 1.48 MV Decel Time: 325.00 E/A: 0.90 E'Lateral: 5.77 E'Medial: 5.00 E/E' Med: 27.60 E/E' Lat: 23.90 PHT: 95.00 MVA PHT: 2.32 MVA Continuity: 1.71 Decel Wilkin: 4.23 Aortic Valve AoV Pk Ramin: 1.22 AoV Mn Rmain: 0.87 AoV VTI: 0.23 AoV Pk Grad: 6.00 Aov Mn Grad: 4.00 LEILA Cont.VTI: 3.17 LVOT LVOT Pk Ramin: 1.13 LVOT Mn Ramin: 0.71 LVOT VTI: 0.21 LVOT Pk Grad: 5.00 LVOT Mn Grad: 2.00 LVOT Diam: 2.10 LVOT Area: 3.46 Diastolic Function MV Pk E: 1.38 MV Pk A: 1.48 E/A: 0.90 E'Medial: 5.00 E/E' Med: 27.60 E' Laterial: 5.77 E/E' Lat: 23.90 Right Ventricle TAPSE (mm): 19.70 TVS' Ramin: 12.50 Tricuspid Valve RA Press: 3.00 Great Vessels Aorta Sinus of Valsalva: 3.80 2.0-3.5 cm Ao Asc: 4.00 2.1-3.4 cm Ao Arch: 3.50 Pulmonary Valve PV Pk Ramin: 0.77 Peak PV Grad: 2.00 Updated in Other Vendor System with Status of Final Fredo Domingo MD electronically signed on 12/13/2024 9:59:20 AM with status of Final
--- OUTSIDE RECORDS SUMMARY | 2024-12-12 16:53 | XMS_ITS | Patient Health Record ---
Author Organization [facility] Address [address], [place] [id number] Care Team Providers Care Plant Wrapper Name Role Phone [facility] Prima ry Care Provider Unavailable Tiara Mclaughlin Unavailable Reason For Referral No Information Encounters Encounter Location Date Provider Diagnosis [facility] [address] [place] [phone] 02/24/2024 Tiara Mclaughlin Plan Of Treatment No Information Insurance Providers Payer Name Payer Address Payer Phone Subscriber Number Group Number Insured Name Patient Relationship to Insured Coverage Start Date Coverage End Date [facility] [address] [place] [phone] [id number] Guy Granado Self - patient is the insured 4
== END ==
LOC: HO.CARD 15:05
PROVIDERS: Visit Provider Internal Medicine Cardiovascular Disease
DX: Z98.890 Other specified postprocedural states (principal)
CPT/HCPCS: 93306; Q9957

== ENCOUNTER → 2024-12-12 15:07 | Outpatient (BNV) | payer OTHER, SELFPAY | PROVIDERS: Visit Provider Internal Medicine | DX: Z95.4 Presence of other heart-valve replacement (principal); I77.810 Thoracic aortic ectasia; Z98.890 Other specified postprocedural states | CPT/HCPCS: 93306 ==

== ENCOUNTER 2025-02-17 19:56 | Emergency (ER) | payer OTHER, SELFPAY ==
[2025-02-17 20:13] VITALS: BP 127/68; PULSE 86; RESP 18; TEMP 37.7; O2SAT 97; BMI 37.5
--- NOTE | 2025-02-17 20:14 | ED.GENADULT ---
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 Patient reports that he takes OxyContin 20 milligrams t.i.d.. He reports that he had been out of his medication on Thursday. He states that he has called his primary doctor and they sent a referral. He reports that the pharmacy told him that they would not have that medication and stuck until Thursday. The patient tried to call his insurance company to check his options and he was told to go to the ER. He has had no further trauma, no change to his pain, no numbness, tingling, bladder or bowel incontinence, no fevers or chills. He is seeking medication for his chronic back pain Related Data Home Medications ?Medication ?Instructions ?Recorded ?Confirmed zolpidem 10 mg tablet 10 mg PO BEDTIME PRN 07/08/21 11/17/24 Previous Rx's ?Medication ?Instructions ?Recorded lisinopril 10 mg tablet 10 mg PO DAILY #90 tabs 06/09/22 metoprolol succinate 100 mg 100 mg PO DAILY #90 tabs 06/26/22 tablet,extended release 24 hr simvastatin 20 mg tablet 20 mg PO BEDTIME 90 days #90 tabs 07/07/22 albuterol sulfate 90 mcg/actuation 1 inh inhalation QID PRN shortness 09/14/22 aerosol inhaler of breath or wheezing #6.7 grams acetaminophen 500 mg tablet 1,000 mg (2 x 500 mg) PO Q6H PRN 06/29/23 (Tylenol Extra Strength) fever or pain #20 tabs pramoxine 1 % topical foam 1 appl FL TID #15 grams 10/22/24 (Proctofoam) amoxicillin 500 mg tablet 2,000 mg (4 x 500 mg) PO ONCE PRN 11/17/24 dental procedures #4 tabs aspirin 81 mg tablet,delayed 81 mg PO DAILY #90 tabs 12/09/24 release oxycodone 20 mg tablet,crush 20 mg PO TID #9 tabs 02/17/25 resistant,extended release 12 hr (OxyContin) Allergies Allergy/AdvReac Type Severity Reaction Status Date / Time morphine (MORPHINE) Allergy Unknown HEADACHE Verified 02/17/25 20:20 Review of Systems Constitutional: Constitutional: Denies body ache(s), Denies chills, Denies fatigue and Denies fever(s) Cardiovascular: Cardiovascular: Denies chest pain and Denies dyspnea on exertion Respiratory: Respiratory: Denies cough and Denies dyspnea on exertion Gastrointestinal: Gastrointestinal: Denies abdominal pain Musculoskeletal: Musculoskeletal: Reports back pain, Denies muscle weakness, Denies numbness and Denies radiating pain into limb Integumentary/Breasts: Skin/Breast: Denies rash Neurologic: Denies numbness Endocrine: Endocrine: Denies fatigue PMFSH Past Medical History Medical History HTN (hypertension) Mitral regurgitation Surgical History Status post mitral valve repair Social History Social History Alcohol intake: never Advance Directives: No Advance Directives Information Provided: Yes Physical Exam ED Vital Signs: Vital Signs - 24 hr 02/17/25 20:13 Temperature 99.8 F Pulse Rate 86 Respiratory Rate 18 Blood Pressure 127/68 Pulse Oximetry 97 Oxygen Delivery Method Room Air BMI result Body Mass Index 37.5 Const General: healthy appearing, comfortable, no acute distress, alert and awake Nutritional Appearance: well nourished Orientation/consciousness: patient oriented x3 HENMT Head: Yes normocephalic and Yes atraumatic Eyes Eyelids: Yes eyelids normal Conjunctivae: conjunctivae normal Sclerae: sclerae normal Corneas: corneas normal Pupils: Equal, round and reactive pupils present EOM: EOMs intact bilaterally Neck Neck: Yes full ROM Resp Effort & Inspection: normal respiratory effort, able to speak in complete sentences and not labored Back/Spine/Pelvis Other: No tenderness to his lumbar spine or thoracic spine. Skin General skin exam: elasticity normal Neuro General: patient oriented x3 Cranial nerves: Yes Equal, round and reactive pupils present and Yes Bilaterally intact EOM present Cognition (Neuro): normal cognition Gait exam (Neuro): Assistive device used (Cane) Motor exam (neuro): 5/5 motor strength present throughout Extrem Other: Moving all extremities well without any obvious deformities Medical Decision Making Medical Decision Making MDM Narrative: Patient presents for chronic back pain. He has no change in his back pain, no recent trauma. He reports he has been out of his OxyContin since Thursday. I was able to confirm with mass pad program with the patient does receive OxyContin 20 milligrams prescriptions for 90 tablets every month, he last filled on January 18, 2025. I suspect that the patient has taken any medication slightly more than prescribed and that is why he ran out early. I discussed this with the patient. However he has not been in his department for similar complaints in the past, and I agreed to give him a 3 day prescription of his OxyContin until he can get his full monthly prescription on Thursday. I did explain to the patient that this is not a chronic fix and needs to take his medications exactly as prescribed. The ER is not the place for refills of chronic pain medications. The patient has no fevers, no trauma and no exam findings do suggest a workup is indicated Differential Diagnosis Differential Diagnoses: The differential diagnosis associated with the presentation includes Chronic back pain Opioid dependence Drug-seeking behavior Opiate withdrawal Tests considered The following testing was considered but not selected: Lumbar spine x-ray Prescription Management I considered prescription management with: Pain Medication Discharge Plan Discharge Clinical Impression: Chronic back pain Patient Disposition: Home, Self-Care Instructions: Chronic Back Pain (DC) Additional Instructions: You were given a 1 time dose of OxyContin 20 milligrams in the ER. I gave you a 3 day course of your prescription to hold you over until your long-term prescription can be filled Prescriptions: New oxycodone [OxyContin] 20 mg tablet,oral only,ext.rel.12 hr 20 mg PO TID Qty: 9 0RF Rx Instructions: Partial Fill upon patient request. No Action lisinopril 10 mg tablet 10 mg PO DAILY Qty: 90 3RF metoprolol succinate 100 mg tablet extended release 24 hr 100 mg PO DAILY Qty: 90 3RF simvastatin 20 mg tablet 20 mg PO BEDTIME 90 Days Qty: 90 3RF aspirin 81 mg tablet,delayed release (DR/EC) 81 mg PO DAILY Qty: 90 3RF albuterol sulfate 90 mcg/actuation HFA aerosol inhaler 1 inh inhalation QID PRN (Reason: shortness of breath or wheezing) Qty: 6.7 0RF acetaminophen [Tylenol Extra Strength] 500 mg tablet 1,000 mg PO Q6H PRN (Reason: fever or pain) Qty: 20 0RF pramoxine [Proctofoam] 1 % foam 1 appl FL TID Qty: 15 0RF zolpidem 10 mg tablet 10 mg PO BEDTIME PRN amoxicillin 500 mg tablet 2,000 mg PO ONCE PRN (Reason: dental procedures) Qty: 4 3RF Print Language: Welsh
--- OUTSIDE RECORDS SUMMARY | 2025-02-17 20:30 | XMS_ITS | Clinical Summary ---
Author Organization [facility] Address [address] [place] [id number] Care Team Providers Care Travelers' Aid Worker Name Role Phone Unknown Primary Care Provider [phone] Allergies No known active allergies Social History [...] 78 02/23/2017 11:52 AM EDT Temperature 36.4 C (97.5 F) 02/23/2017 7:23 AM EDT Respiratory Rate 16 02/23/2017 11:52 AM EDT [...] 2023- season) 2024 Influenza Vaccine 01/27/2025 Insurance MEDICARE PART [facility] (AUTO/LIABILITY) Care Teams Travelers' Aid Worker Relationship Specialty Start Date End Date Unknown Unknow Provider Address PCP - General 02/23/17
--- OUTSIDE RECORDS SUMMARY | 2025-02-17 20:30 | XMS_ITS | Patient Health Record ---
Author Organization [facility] Address [address], [place] [id number] Care Team Providers Care Tower Hand Name Role Phone [facility] Prima ry Care Provider [phone] Tiara Mclaughlin Unavailable Reason For Referral No Information Encounters Encounter Location Date Provider Diagnosis [facility] [address], [place] [phone] 02/24/2024 Tiara Mclaughlin Plan Of Treatment No Information Insurance Providers Payer Name Payer Address Payer Phone Subscriber Number Group Number Insured Name Patient Relationship to Insured Coverage Start Date Coverage End Date [facility] [address] [place] [phone] [id number] Guy Granado Self - patient is the insured 4
[2025-02-17] MEDS: oxyCODONE HCl ER 10 MG TAB.ER.12H 20 MG PO (20:34)
== END 2025-02-17 22:33 | disposition home or self-care (01) ==
PROVIDERS: Emergency Provider Emergency Medicine; PCP Internal Medicine
DX: M54.50 Low back pain, unspecified (principal); E11.9 Type 2 diabetes mellitus without complications; I10 Essential (primary) hypertension; Z79.899 Other long term (current) drug therapy
CPT/HCPCS: 99282; 99283

== ENCOUNTER 2025-03-28 21:41 | Emergency (ER) | payer OTHER, SELFPAY ==
--- NOTE | ~2025-03-28 | CT_ITS ---
CLINICAL HISTORY: left lower abdominal pain CT abdomen and pelvis with contrast Comparison: CT/SR - CT ABDOMEN PELVIS W IV CON - 10/22/24 11:12 EDT Findings: Mild atelectasis at lung bases. Heart size at the upper limits. No pericardial effusion. Hypodense liver. Gallbladder and solid organs otherwise unremarkable. No urolithiasis. No bowel obstruction, pneumoperitoneum, or pneumatosis. Mesenteric vessels patent. Moderate stool. Defect in the left lower anterior abdominal wall is likely postoperative sequela. No change. Appendectomy. No evidence of diverticulitis. L5-S1 interbody graft. No stabilization hardware. IMPRESSION: 1. Hepatic steatosis. 2. Moderate stool without bowel obstruction. 3. Additional nonacute findings as above. This document has been electronically signed by: Sarai Pena MD on 03/29/2025 03:25:01
[2025-03-28 21:54] VITALS: BP 168/79; PULSE 78; RESP 18; TEMP 36.6; O2SAT 98; BMI 38.7
[2025-03-28 22:41] LABS: MANUAL DIFF FLAG NO
[2025-03-28 22:43] LABS: Hematocrit 36.4 % (42.0-52.0); Hemoglobin 12.4 g/dl (14.0-18.0); Imm Gran Abs Auto 0.03 X10*3/uL (0.00-0.03); Imm Gran Pct Auto 0.5 % (0.0-0.4); Lymphocytes Absolute Auto 2.2 X10*3/uL (1.2-4.9); Mean Corpuscular HGB Conc 34.1 g/dl (31.0-36.0); Mean Corpuscular Hemoglobin 29.5 pg (27.0-33.0); Mean Corpuscular Volume 86.7 fL (80.0-98.0); NRBC Abs Auto 0.000 X10*3/uL (0.0-0.012); NRBC Pct Auto 0.0 /100WBC (0.0-0.2); Platelet Count 161 X10*3/uL (160-400); Red Blood Count 4.20 X10*6/uL (4.60-5.80); White Blood Count 6.5 X10*3/uL (4.8-10.8)
[2025-03-28 22:56] LABS: Alanine Aminotransferase 35 U/L (0-40); Albumin Level 4.0 g/dL (3.5-5.0); Alkaline Phosphatase 105 U/L (39-117); Anion Gap 11 (12-20); Aspartate Amino Transferase 32 U/L (5-37); Blood Urea Nitrogen 11 mg/dL (9-16); Calcium 9.3 mg/dL (8.4-10.2); Carbon Dioxide 27 mmol/L (22-29); Chloride 109 mmol/L (96-108); Creatinine Clr Calc Pharmacy 116.3; Estimated Glomerular Filt Rate > 60; Lipase 9 U/L (8-78); Magnesium 2.0 mg/dL (1.6-2.6); Potassium 4.5 mmol/L (3.3-5.1); Sodium 142 mmol/L (135-145); Total Protein 6.8 g/dL (6.5-8.0)
[2025-03-29 00:52] VITALS: BP 148/83; PULSE 81; RESP 16; TEMP 36.6; O2SAT 95
--- NOTE | 2025-03-29 01:19 | PC.NURSE ---
provider into assess pt, rectal examination completed.
[2025-03-29 01:33] LABS: OBS Int Ctl Valid YES; OBS1 NEGATIVE (NEGATIVE)
--- NOTE | 2025-03-29 01:33 | PC.NURSE ---
Iv placed on left forearm, notified provider pt requesting pain medication.
--- NOTE | 2025-03-29 01:36 | ED_ITS ---
HPI - General Adult General Chief complaint: Abdominal Pain Stated complaint: Blood in stool Time Seen by Provider: 03/29/25 00:56 Source: patient, RN notes reviewed, old records reviewed and [employer] mathematics [employer] Mode of arrival: ambulatory Limitations: language barrier History of Present Illness ED Provider: Juan Daniel HPI narrative: 59-year-old male past medical history significant for diabetes, hypertension, diverticulitis status post Ulysses procedure nicely a 6 and reversal 3 months later presents for evaluation of left lower abdominal pain and bloody stool. Patient reports that his symptoms started Thursday, 3 days ago. He is not anticoagulated but does take aspirin daily. He reports being admitted in October to [facility] for diverticulitis. He also was admitted to [facility] in January for acute appendicitis He denies any fevers or chills. He reports his pain is 8/10 He describes the blood as bright red and ?a lot with clots. ? Related Data Home Medications ?Medication ?Instructions ?Recorded ?Confirmed zolpidem 10 mg tablet 10 mg PO BEDTIME PRN 2 11/17/24 Previous Rx's ?Medication ?Instructions ?Recorded lisinopril 10 mg tablet 10 mg PO DAILY #90 tabs 05/29 08/20 metoprolol succinate 100 mg 100 mg PO DAILY #90 tabs 1 tablet,extended release 24 hr simvastatin 20 mg tablet 20 mg PO BEDTIME 90 days #90 tabs 07/07/22 albuterol sulfate 90 mcg/actuation 1 inh inhalation QI D PRN shortness 09/14/22 aerosol inhaler of breath or wheezing #6.7 g terri acetaminophen 500 mg tablet 1,000 mg (2 x 500 mg) PO Q 6H PRN 06/29/23 (Tylenol Extra Strength) fever or pain #20 tabs pramoxine 1 % topical foam 1 appl [place] TID #15 grams (Proctofoam) amoxicillin 500 mg tablet 2,000 mg (4 x 500 mg) PO ONC E PRN 11/17/24 dental procedures #4 tabs aspirin 81 mg tablet,delayed 81 mg PO DAILY #90 tabs 0 12/09/24 release oxycodone 20 mg tablet,crush 20 mg PO TID #9 tabs 01/28 08/23 resistant,extended release 12 hr (OxyContin) hydrocortisone acetate 25 mg 25 mg [place] BID PRN hemorrho ids #12 ea 03/29/25 rectal suppository Allergies Allergy/AdvReac Type Severity Reaction Status Date / Time morphine (MORPHINE) Allergy Unknown HEADACHE Verified 03/28/25 21:58 Review of Systems 2 Constitutional: Constitutional: Denies body ache(s), Denies chills, Denies fever(s) and Denies headache(s) Eyes: Eyes: Denies blurry vision ENT: Denies dizziness and Denies headache(s) Cardiovascular: Cardiovascular: Denies chest pain and Denies dyspnea on exertion Respiratory: Respiratory: Denies cough and Denies dyspnea on exertion Gastrointestinal: Gastrointestinal: Reports abdominal pain, Reports hematochezia and Denies nausea Genitourinary: Genitourinary: Denies dysuria Musculoskeletal: Musculoskeletal: Denies back pain Integumentary/Breasts: Skin/Breast: Denies rash Neurologic: Denies dizziness and Denies headache(s) Psychiatric: Psychiatric: Denies anxiety PMFSH Past Medical History Medical History HTN (hypertension) Mitral regurgitation Surgical History Status post mitral valve repair Social History Social History Alcohol intake: never Smoked in Last 30 Days: No Use of substances other than those prescribed or required for medical reasons: No Advance Directives: No Advance Directives Information Provided: Yes Do you have a plan to hurt others: No Plan Physical Exam ED Vital Signs: Vital Signs - 24 hr 03/28/25 21:54 03/29/25 00:52 03/29/25 03:18 Temperature 98 F 97.9 F 97.8 F Pulse Rate 78 81 82 Respiratory Rate 18 16 16 Blood Pressure 168/79 H 148/83 H 117/52 L Pulse Oximetry 98 95 94 Oxygen Delivery Method Room Air Room Air Room Air BMI result Body Mass Index 38.7 Const General: healthy appearing, comfortable, no acute distress, alert and awake Nutritional Appearance: well nourished Orientation/consciousness: patient oriented x3 HENMT Head: Yes normocephalic and Yes atraumatic Eyes Eyelids: Yes eyelids normal Conjunctivae: conjunctivae normal Sclerae: sclerae normal Corneas: corneas normal Pupils: Equal, round and reactive pupils present EOM: EOMs intact bilaterally Neck Neck: Yes full ROM Resp Effort & Inspection: normal respiratory effort, able to speak in complete sentences and not labored GI Inspection: No distended Palpation (GI): Soft to palpation, not firm, Tenderness to palpation present (GI) in the LLQ, no guarding and not rigid Rectal Exam - Male: Yes visual inspection normal, Yes normal sphincter tone, Yes heme negative stool and No External hemorrhoid(s) present Skin General skin exam: elasticity normal Neuro General: patient oriented x3 Cranial nerves: Yes Equal, round and reactive pupils present and Yes Bilaterally intact EOM present Cognition (Neuro): normal cognition Extrem Other: Moving all extremities well without any obvious deformities Course Reevaluation(s) Reevaluation #1: I Autumn Barron PA-C have personally accepted care of the patient and signed out pending CT scan and final disposition CT abdomen and pelvis:IMPRESSION: 1. Hepatic steatosis. 2. Moderate stool without bowel obstruction. 3. Additional nonacute findings as above. Medications Administered Discontinued Medications Generic Name Dose Route Start Last Admin Trade Name Freq PRN Reason Stop Dose Admin Hydromorphone HCl 1 mg 03/29/25 01:34 03/29/25 01:45 Hydromorphone Hcl 1 Mg/Ml Syringe IVPUSH 03/29/25 01:35 1 mg ONCE ONE Administration Protocol Iohexol 100 ml 03/29/25 02:40 03/29/25 02:42 Iohexol 350 Mg/Ml 100 Ml Infus..Btl IV 03/29/25 02:41 100 ml ONCE ONE Administration Ondansetron HCl 4 mg 03/29/25 01:33 03/29/25 01:44 Ondansetron Hcl 4 Mg/2 Ml Vial IVPUSH 03/29/25 01:34 4 mg ONCE ONE Administration Medical Decision Making Medical Decision Making MDM Narrative: 59-year-old male presents for evaluation of left lower abdominal pain with bright red stool. He has a long history of diverticulitis including perforation with Ulysses procedure approximately 40 years ago. This is quite tender left lower quadrant. Rectal exam is benign, guaiac negative. He is mildly anemic down from 13.8 and 41.0 respectively in September of this year. He is quite well appearing, vital signs are stable we will get a CT scan of the abdomen pelvis to evaluate for acute diverticulitis. His symptoms may also be related to internal hemorrhoids. It does appear the patient is on chronic OxyContin and likely has a history of constipation as he is on MiraLax, senna and docusate sodium. So hemorrhoids were also likely. There are no external hemorrhoids on exam Differential Diagnosis Differential Diagnoses: The differential diagnosis associated with the presentation includes Acute diverticulitis Colitis Constipation Internal hemorrhoid Lab Data MDM Lab Attestation statement: I reviewed the patient's lab results. As above, mild anemia 03/28/25 22:37 03/28/25 22:37 Labs: Lab Results 03/28/25 03/29/25 03/29/25 Range/Units 22:37 01:28 02:18 WBC 6.5 (4.8-10.8) X10*3/uL RBC 4.20 L (4.60-5.80) X10*6/uL Hgb 12.4 L (14.0-18.0) g/dl Hct 36.4 L (42.0-52.0) % MCV 86.7 (80.0-98.0) fL MCH 29.5 (27.0-33.0) pg MCHC 34.1 (31.0-36.0) g/dl RDW 13.9 (11.0-16.0) % Plt Count 161 (160-400) X10*3/uL MPV 10.8 (9.4-12.4) fL Immature Gran % (Auto) 0.5 H (0.0-0.4) % Neut % (Auto) 54.3 (45-73) % Lymph % (Auto) 34.0 (20-40) % [place] % (Auto) 8.7 (2-11) % Eos % (Auto) 2.3 (0-4) % Baso % (Auto) 0.2 (0-2) % Lymph # (Auto) 2.2 (1.2-4.9) X10*3/uL [place] # (Auto) 0.6 (0.1-1.2) X10*3/uL Eos # (Auto) 0.2 (0.0-0.4) X10*3/uL Baso # (Auto) 0.0 (0.0-0.2) X10*3/uL Abs Immat Gran (auto) 0.03 (0.00-0.03) X10*3/uL Absolute Neuts (auto) 3.5 (2.0-8.3) x10*3/uL Absolute Nucleated RBC 0.000 (0.0-0.012) X10*3/uL Nucleated RBC % (auto) 0.0 (0.0-0.2) /100WBC Sodium 142 (135-145) mmol/L Potassium 4.5 (3.3-5.1) mmol/L Chloride 109 H (96-108) mmol/L Carbon Dioxide 27 (22-29) mmol/L Anion Gap 11 L (12-20) BUN 11 (9-16) mg/dL Creatinine 0.81 (0.5-1.4) mg/dL Estim Creat Clear Calc 116.3 Estimated GFR > 60 Random Glucose 98 (60-115) mg/dL Calcium 9.3 (8.4-10.2) mg/dL Magnesium 2.0 (1.6-2.6) mg/dL Total Bilirubin 0.2 (0.0-1.0) mg/dL AST 32 (5-37) U/L ALT 35 (0-40) U/L Alkaline Phosphatase 105 (39-117) U/L Total Protein 6.8 (6.5-8.0) g/dL Albumin 4.0 (3.5-5.0) g/dL Lipase 9 (8-78) U/L Urine Color Yellow Urine Appearance Clear Urine pH 5.5 (5.0-9.0) Ur Specific [place] <= 1.005 (1.005-1.025) Urine Protein Negative (Neg-Trace) mg/dL Urine Glucose (UA) Negative (Negative) mg/dL Urine Ketones Negative (Negative) mg/dL Urine Blood Negative (Negative) Urine Nitrite Negative (Negative) Ur Leukocyte Esterase Negative (Negative) Stool Occult Blood NEGATIVE (NEGATIVE) Discharge Plan Discharge Clinical Impression: Constipation, Rectal bleeding Patient Disposition: Home, Self-Care Instructions: Constipation (ED), Rectal Bleeding (ED) Additional Instructions: All of your screening labs were overall normal for you. We obtained a stool sample to check for blood in the stool, it was negative. We suspect of the bleeding you have experienced, is secondary from straining to have a bowel movement. You may have internal hemorrhoids, that would only be detected with a colonoscopy. The CT scan of your abdomen and pelvis was negative for acute process, you were found to have significant stool burden. You should be using [id number] Colace which is a stool softener, twice daily. I am providing you with suppositories to help alleviate inflammation of the rectum. You should also use [id number] MiraLax, 2 to 3 times a day, to help alleviate the constipation. Follow up with your primary care provider as needed. Prescriptions: New hydrocortisone acetate 25 mg suppository 25 mg [place] BID PRN (Reason: hemorrhoids) Qty: 12 0RF No Action lisinopril 10 mg tablet 10 mg PO DAILY Qty: 90 3RF metoprolol succinate 100 mg tablet extended release 24 hr 100 mg PO DAILY Qty: 90 3RF simvastatin 20 mg tablet 20 mg PO BEDTIME 90 Days Qty: 90 3RF aspirin 81 mg tablet,delayed release (DR/EC) 81 mg PO DAILY Qty: 90 3RF albuterol sulfate 90 mcg/actuation HFA aerosol inhaler 1 inh inhalation QID PRN (Reason: shortness of breath or wheezing) Qty: 6.7 0RF acetaminophen [Tylenol Extra Strength] 500 mg tablet 1,000 mg PO Q6H PRN (Reason: fever or pain) Qty: 20 0RF pramoxine [Proctofoam] 1 % foam 1 appl [place] TID Qty: 15 0RF oxycodone [OxyContin] 20 mg tablet,oral only,ext.rel.12 hr 20 mg PO TID Qty: 9 0RF Rx Instructions: Partial Fill upon patient request. zolpidem 10 mg tablet 10 mg PO BEDTIME PRN amoxicillin 500 mg tablet 2,000 mg PO ONCE PRN (Reason: dental procedures) Qty: 4 3RF Print Language: Guatemalan
--- OUTSIDE RECORDS SUMMARY | 2025-03-29 01:40 | XMS_ITS | Clinical Summary ---
Author Organization Former[facility] Address [address] [place] [id number] Care Team Providers Care Digital Community Manager Name Role Phone Unknown Primary Care Provider Allergies No known active allergies Social History [...] Zoster (Shingles) Vaccine (1 of 2) 2017 Influenza Vaccine 01/27/2025 COVID-19 Vaccine (1 - season) 2025 Insurance MEDICARE PART A & B [facility] (AUTO/LIABILITY) Care Teams Digital Community Manager Relationship Specialty Start Date End Date Unknown Unknow Provider Address PCP - General 02/23/17
--- OUTSIDE RECORDS SUMMARY | 2025-03-29 01:40 | XMS_ITS | Patient Health Record ---
Author Organization [facility] Address [address] [place] [address] Care Team Providers Care General Supervisor Name Role Phone [facility] Prima ry Care Provider [phone] Tiara Mclaughlin Unavailable [phone] Reason For Referral No Information Plan Of Treatment No Information Insurance Providers Payer Name Payer Address Payer Phone Subscriber Number Group Number Insured Name Patient Relationship to Insured Coverage Start Date Coverage End Date [facility] [address] [place] [phone] [id number] Guy Granado Self - patient is the insured 4
--- NOTE | 2025-03-29 01:48 | PC.NURSE ---
Pt medicated per mar.
--- NOTE | 2025-03-29 02:23 | PC.NURSE ---
ua collected and sent.
[2025-03-29 02:27] LABS: Appearance Urine Clear; Glucose Urine UA Negative (Negative); PH 5.5 (5.0-9.0); Specific Gravity - Urine <= 1.005 (1.005-1.025)
[2025-03-29] MEDS: iohexoL 350 MG/ML 100 ML INFUS..BTL IV (02:42)
--- NOTE | 2025-03-29 02:42 | PC.NURSE ---
pt taken to CT-scan.
[2025-03-29 03:18] VITALS: BP 117/52; PULSE 82; RESP 16; TEMP 36.6; O2SAT 94
[2025-03-29 03:39] VITALS: BP 117/52; PULSE 82; RESP 16; TEMP 36.6; O2SAT 94
--- NOTE | 2025-03-29 03:39 | PC.NURSE ---
Iv removed, reviewed discharge instructions with pt. pt verbalized understanding, no sign of distress at this time. pt ambulate with a steady gait with his cane
== END 2025-03-29 03:40 | disposition home or self-care (01) ==
PROVIDERS: Physician Assistant; Emergency Provider Emergency Medicine; PCP Internal Medicine
DX: K59.00 Constipation, unspecified (principal); K62.5 Hemorrhage of anus and rectum; R10.32 Left lower quadrant pain; E11.9 Type 2 diabetes mellitus without complications; I10 Essential (primary) hypertension
CPT/HCPCS: 36415; 74177; 80053; 81003; 82272; 83690; 83735; 85025; 96374; 96375; 99284; J1171; J2405; Q9967

== ENCOUNTER → 2025-03-29 01:24 | Outpatient (BNV) | payer OTHER, SELFPAY | PROVIDERS: Emergency Provider Emergency Medicine; PCP Internal Medicine; Visit Provider Radiology Diagnostic Radiology | DX: K76.0 Fatty (change of) liver, not elsewhere classified (principal) | CPT/HCPCS: 74177 ==